=== PATIENT | male | born 1950 | race Caucasian/White ===

== ENCOUNTER 2017-02-04 05:59 | Day surgery (SDC) | payer BC ==
[2017-01-29 10:53] VITALS: BMI 33.0
[~2017-02-04 05:59] MED LIST: DEXAMETHASONE SOD PHOSPHATE 10 MG/ML 1 ML VIAL IV ONE; HEPARIN SODIUM,PORCINE 5,000 UNIT/ML 1 ML VIAL SQ ONE; LACTATED RINGERS 1,000 ML IV SCH; LIDOCAINE 1% 20 ML VIAL (10MG/ML) FOR IV START INTRADERMA PRN; MIDAZOLAM 2 MG/2 ML VIAL IV PRN; ONDANSETRON 4 MG/2 ML VIAL IVP ONE; SCOPOLAMINE 1.5MG/72HR PATCH TRANSDERM ONE; ceFAZolin 2 GM in SODIUM CHLORIDE 0.9% 100 ML IVPB ONE
[2017-02-04] MEDS ORDERED: NEOSTIGMINE 1 MG/ML 10 ML VIAL ONE (07:35)
[2017-02-04] MEDS ORDERED: ROCURONIUM BROMIDE 10 MG/ML 10 ML VIAL IV ONE (07:35)
[2017-02-04] MEDS ORDERED: GLYCOPYRROLATE 0.2 MG/ML 2 ML VIAL ONE (07:35)
[2017-02-04] MEDS ORDERED: PROPOFOL 10 MG/ML 20 ML VIAL IV ONE (07:35)
[2017-02-04] MEDS ORDERED: HYDROmorphone (PF) 1 MG/ML ONE (07:35)
[2017-02-04] MEDS ORDERED: fentaNYL (PF) 50 MCG/ML 2 ML AMP ONE (07:35)
[2017-02-04] MEDS ORDERED: MIDAZOLAM 2 MG/2 ML VIAL ONE (07:35)
[2017-02-04] MEDS ORDERED: SUCCINYLCHOLINE CHLORIDE 100 MG/5 ML SYR IV ONE (07:35)
[2017-02-04] MEDS ORDERED: KETOROLAC 30 MG/ML 1 ML VIAL ONE (07:35)
[2017-02-04] MEDS ORDERED: BUPIVACAIN-EPI 0.5%-1:200,000 30 ML VIAL SQ ONE (08:02)
[2017-02-04] MEDS ORDERED: LACTATED RINGERS 1,000 ML IV ONE (08:14)
--- NOTE | 2017-02-04 09:05 | P.OP ---
Date of Procedure: 02/04/17 Preoperative Diagnosis: Incarcerated umbillical hernia Hypertension Hypercholesterolemia Prostate enlargement Postoperative Diagnosis: Incarcerated umbillical hernia Hypertension Hypercholesterolemia Prostate enlargement Procedure(s) Performed: Robotic-assisted laparoscopic incarcerated umbilical hernia repair with mesh Implants: Ventralex ST patch Ref#[id number] 6.4 cm circular Anesthesia: MAG local Surgeon: Yaquelin Rocha Estimated Blood Loss (ml): 10 Pathology: none sent Condition: stable Disposition: PACU Indications for Procedure: 66 years old male presents for umbilical hernia repair. Informed consent obtained. Operative Findings: Incarcerated umbilical hernia containing omentum Description of Procedure: The patient was brought to the operating room and placed in supine position. General anesthesia with endotracheal intubation was performed as per anesthesia team. The right arm was tucked against the body and a footboard was applied. Chlorhexidine was used to prep the skin followed by application of sterile drapes and Ioban dressing. A timeout was performed to verify correct patient and correct procedure. Patient was confirmed to receive perioperative IV antibiotics , bilateral SCDs and 5000 units of subcutaneous heparin for VTE prophylaxis. A 5 mm skin incision was made along the left midaxillary line and a Veress needle was inserted to establish the pneumoperitoneum to a pressure of 15 mm of Hg. Using a 5 mm 30 laparoscope the peritoneal cavity was entered using the Optiview technique. Additional 12 mm trocar was placed in the mid axillary line in the left mid abdomen and robotic 8 mm trocar in the left lower abdomen. The 5 mm trocar was upsized to 8 mm robotic trocar. The da Donis robot was then docked. The 30 robotic camera was used. A robotic prograsp and monopolar scissors were inserted through 8 mm robotic trocars The hernia defect contained preperitoneal fat and omentum which were reduced using gentle traction and countertraction method. The falciform ligament was divided using monopolar scissors close to the anterior abdominal wall to create a landing zone for the mesh. A 6.[address] circular mesh was rolled and introduced to the abdominal cavity via the 12 mm trocar. The hernia defect was closed primarily with running sutures using O- V lock by taking 1 cm bite on the fascia on either side of the defect. A Fran Zainab device was inserted through the middle of the hernia defect and the stay suture on the mesh was grasped to elevate the mesh against the anterior abdominal wall. The mesh was circumferentially sutured to the peritoneum of the anterior abdominal wall using 2-0 V lock without any folds or kinks. The robot was then undocked. Laparoscopic 30 degrees camera was reinserted. All trocar sites were examined. No evidence of bleeding. The 12 mm trocar site was closed using two transfascial sutures of 0 Vicryl which were placed using a Instilling Values device. The pneumoperitoneum was evacuated and all the skin incisions were closed using 4-0 Monocryl followed by Dermabond skin glue. Telfa and Tegaderm dressings were applied. The sponge, instrument and needle count were correct x2. Abdominal binder was applied. The patient was extubated and taken to post anesthesia care unit in stable condition.
[2017-02-04] MEDS: HYDROmorphone 1 MG/ML 1 ML SYRINGE IVP PRN ×3 (09:25→09:50)
[2017-02-04 09:32] VITALS: TEMP 98
[2017-02-04 10:16] VITALS: RESP 16
[2017-02-04] MEDS ORDERED: HYDROcodone/APAP 5-325MG 1 EACH TAB PO ONE (10:54)
[2017-02-04 11:08] VITALS: BP 130/78; PULSE 73
== END 2017-02-04 11:27 | disposition home or self-care (01) ==
LOC: OR 05:59
PROVIDERS: ATTEND Surgery
DX: K42.0 Umbilical hernia with obstruction, without gangrene (principal); I10 Essential (primary) hypertension; E78.00 Pure hypercholesterolemia, unspecified; E78.5 Hyperlipidemia, unspecified; N40.0 Benign prostatic hyperplasia without lower urinary tract symptoms; Z79.899 Other long term (current) drug therapy
CPT/HCPCS: 49653; S2900

== ENCOUNTER 2019-05-11 08:42 | Inpatient (IN) | payer MEDICARE, OTHER ==
[2019-05-11] MEDS ORDERED: HEPARIN SODIUM,PORCINE 5,000 UNIT/ML 1 ML VIAL IV PRN (08:48)
--- NOTE | 2019-05-11 08:55 | ED ---
Chest Pain HPI - General Stated Complaint: chest pain Time Seen by Provider: 05/11/19 08:42 Source: patient, RN/MD, EMS, RN notes reviewed, old records reviewed - History of Present Illness Initial Comments: This a 68-year-old male who was transferred from [facility] to this facility for further evaluation of chest pain. He presented today 0 to that emergency facility with chest pain after workup was discharged with plans for outpatient stress test when he presented again this morning very early with recurrent pain that now is radiating to his back. It was about 6/10 severity after morphine went on for/10 he currently is pain-free. He did have a markedly elevated d-dimer CAT scan was performed no evidence of any pulmonary embolism additionally the CT was negative for any evidence of aortic aneurysm or dis section or other factors please see the complete report. His initial troponin was negative. The case had been discussed with Dr. Radford patient was transferred here. MD Complaint: chest pain - Related Data Home Medications Medication Instructions Recorded Confirmed Metoprolol Succinate [Toprol XL] 25 mg PO DAILY 01/29/17 05/11/19 Tamsulosin [Flomax] 0.4 mg PO DAILY 01/29/17 05/11/19 amLODIPine [Norvasc] 10 mg PO DAILY 01/29/17 05/11/19 Atorvastatin [Lipitor] 80 mg PO HS 05/11/19 05/11/19 Omeprazole 20 mg PO DAILY 05/11/19 05/11/19 traZODone HCL [Desyrel] 50 mg PO HS 05/11/19 05/11/19 Allergies Allergy/AdvReac Type Severity Reaction Status Date / Time lisinopril AdvReac Cough Verified 05/11/19 09:09 Review of Systems ROS Statement: Those systems with pertinent positive or pertinent negative responses have been documented in the HPI. ROS Other: All systems not noted in ROS Statement are negative. EKG Findings - EKG Results: EKG: interpreted by RISSA, sinus rhythm (Sinus bradycardia rate of 56. Interval 172 QRS duration 100 QT since QTC 43/414 this is compared with EKG sent from the other facility.) Past Medical History Past Medical History: Hyperlipidemia, Hypertension, Osteoarthritis (OA) History of Any Multi-Drug Resistant Organisms: None Reported Past Surgical History: Cholecystectomy, Hernia Repair, Joint Replacement, Orthopedic Surgery Additional Past Surgical History / Comment(s): R & L Knee replaced; R & L Should er scope Past Anesthesia/Blood Transfusion Reactions: No Reported Reaction Smoking Status: Never smoker - Past Family History Father Family Medical History: Cancer Mother Family Medical History: Cancer General Exam - General Exam Comments Initial Comments: This is a well-developed well-nourished awake alert oriented 3 male General appearance: alert, in no apparent distress Head exam: Present: atraumatic, normocephalic, normal inspection Eye exam: Present: normal appearance, PERRL, EOMI. Absent: scleral icterus, c onjunctival injection, periorbital swelling ENT exam: Present: normal exam, mucous membranes moist Neck exam: Present: normal inspection. Absent: tenderness, meningismus, lymphadenopathy Respiratory exam: Present: normal lung sounds bilaterally. Absent: respiratory distress, wheezes, rales, rhonchi, stridor Cardiovascular Exam: Present: regular rate, normal rhythm, normal heart sounds. Absent: systolic murmur, diastolic murmur, rubs, gallop, clicks GI/Abdominal exam: Present: soft, normal bowel sounds. Absent: distended, tenderness, guarding, rebound, rigid Extremities exam: Present: normal inspection, full ROM, normal capillary refill. Absent: tenderness, pedal edema, joint swelling, calf tenderness Back exam: Present: normal inspection Neurological exam: Present: alert, oriented X3, CN II-XII intact Psychiatric exam: Present: normal affect, normal mood Skin exam: Present: warm, dry, intact, normal color. Absent: rash Course Vital Signs 05/11/19 08:55 Temperature 98.2 F Pulse Rate 52 L Respiratory 18 Rate Blood Pressure 127/72 O2 Sat by Pulse 97 Oximetry - Reevaluation(s) Reevaluation #1: 05/11/19 08:55 I did review the materials from the other hospital. The radiology Department is unable to download the imaging from the disc that was sent with the patient. The written reports are present. 05/11/19 09:17 Chest Pain MDM - MDM Patient did present with complaints of chest pain to [facility] was transferred here for evaluation he is currently pain-free EKG is unremarkable at this time compared to the one done at that time. Patient will be admitted Dr. Young will be admitting physician and Dr. Loaiza will be consulted Disposition Clinical Impression: Unstable angina pectoris, Acute coronary syndrome Disposition: ADMITTED IP TO THIS HOSP Condition: Stable Referrals: Juan Antonio Taylor MD [Primary Care Provider] - 1-2 days
[2019-05-11] MEDS: HEPARIN SOD,PORK IN 0.45% NACL 25,000 UNIT in 0.45% NACL 1 250ML.BAG IV SCH (09:38)
--- NOTE | 2019-05-11 11:00 | P.HPIM ---
History of Present Illness H&P Date: 05/11/19 The patient is a 68 yo M with a PMH of HTN, HLD, and fatty liver disease was transferred to [facility] for chest pain. The patient notes that he has been having epigastric and substernal pressure-like chest discomfort for the previous one month, constant, with no alleviating or exacerbating features. The patient notes however that on Wednesday 05/09, blood pressure worsened and he developed a 4 out of 10 pain in the same region, non-radiating, which was also constant and nonexertional. He also had an episode of dizziness while he was working in the yard, which prompted him to go to [place] emergency room. The patient was evaluated and was discussed with (bankruptcy processor), who had advised that the patient may be discharged with an outpatient stress test. The patient notes however that last night, the pain, characterized as a pressure worsened to a 6 out of 10, again in the same region, but now radiating straight to the back. The patient again denied any alleviating or exacerbating features, with pain being nonexertional, nonpleuritic, with some associated nausea and dry heaving. The patient denied associated symptoms including shortness of breath, palpitations, diaphoresis, or dizziness. He presented back at [facility] where his d-dimer was 961, after which he underwent a CT chest abdomen pelvis which revealed no PEs or dissection. The patient's EKG revealed no ST/T- wave changes with sinus rhythm. Repeat EKG in [facility] emergency room revealed a sinus bradycardia at 56 bpm, with no ST/T-wave changes noted. The patient's troponin was unremarkable. The patient was however transferred to [facility] for further evaluation by cardiology. At time of interview, the patient notes that his pain is a 4 out of 10. The patient's laboratory evaluation from [place] was reviewed, with WBC count 4.6, hemoglobin 14, platelets 149, sodium 142, potassium 3.9, chloride 111, CO2 24, BUN 18, creatinine 0.9, glucose 101, AST 24, ALT 22, alk phos 56, albumin 3.8, and lipase 49. The patient is being admitted to the medicine service under observation for evaluation by cardiology. Review of Systems Pertinent positives and negatives as discussed in HPI, a complete review of systems was performed and all other systems are negative. Past Medical History Past Medical History: Hearing Disorder / Deafness, Hyperlipidemia, Hypertension, Osteoarthritis (OA), Prostate Disorder Additional Past Medical History / Comment(s): Past recurrent pancreatitis, possible autoimmune hepatitis-pt states 3 physicians said he did and 3 said he did not have it, slight heart valve leak, occasional back pain, arthritis in multiple joints. History of Any Multi-Drug Resistant Organisms: None Reported Past Surgical History: Cholecystectomy, Hernia Repair, Joint Replacement, Orthopedic Surgery Additional Past Surgical History / Comment(s): R & L Knee replaced; R & L shoulder arthroscopic surgeries, umbilical hernia repair with mesh, incisional hernia repair, EGD, ERCP, colonoscopy-normal. Past Anesthesia/Blood Transfusion Reactions: No Reported Reaction Past Psychological History: No Psychological Hx Reported Additional Psychological History / Comment(s): Pt resides with his spouse. They have one dog. He is independent. Smoking Status: Never smoker Past Alcohol Use History: Occasional Past Drug Use History: None Reported - Past Family History Father Family Medical History: Cancer Additional Family Medical History / Comment(s): Father of lung cancer. He was a smoker. Mother Family Medical History: Cancer Additional Family Medical History / Comment(s): Mother of lung cancer. She was a smoker. Medications and Allergies Home Medications Medication Instructions Recorded Confirmed Type Metoprolol Succinate [Toprol XL] 25 mg PO DAILY 01/29/17 05/11/19 History Tamsulosin [Flomax] 0.4 mg PO DAILY 01/29/17 05/11/19 History amLODIPine [Norvasc] 10 mg PO DAILY 01/29/17 05/11/19 History Atorvastatin [Lipitor] 80 mg PO HS 05/11/19 05/11/19 History Omeprazole 20 mg PO DAILY 05/11/19 05/11/19 History traZODone HCL [Desyrel] 50 mg PO HS 05/11/19 05/11/19 History Allergies Allergy/AdvReac Type Severity Reaction Status Date / Time lisinopril AdvReac Cough Verified 05/11/19 09:09 Physical Exam Vitals: Vital Signs Temp Pulse Resp BP Pulse Ox 05/11/19 10:30 61 19 118/82 99 05/11/19 10:00 56 L 15 138/81 97 05/11/19 08:55 98.2 F 52 L 18 127/72 97 Intake and Output 05/10/19 05/11/19 05/11/19 22:59 06:59 14:59 Other: Weight 104.326 kg General: non toxic, no distress, appears at stated age, obese Derm: no unusual rashes/lesions no unusual ecchymoses, warm, dry Head: atraumatic, normocephalic, symmetric Eyes: EOMI, no lid lag, anicteric sclera, pupils equal round reactive to light ENT: Nose and ears atraumatic, no thrush, no pharyngeal erythema Neck: No thyromegaly, no cervical lymphadenopathy, trachea midline, supple Mouth: no lip lesion, mucus membranes moist Cardiovascular: S1S2 reg, no murmur, positive posterior tibial pulse bilateral, no edema, capillary refill less than 2 seconds, no chest wall tenderness Lungs: CTA bilateral, no rhonchi, no rales , no accessory muscle use Abdominal: Obese, soft, nontender to palpation, no guarding, no appreciable organomegaly, normal bowel sounds Ext: no gross muscle atrophy, muscle strength 5 out of 5 in all 4 extremities grossly, no contractures, Neuro: CN II-XI grossly intact, light touch intact all 4 extremities, finger to nose within normal limits, Psych: Alert, oriented, appropriate affect Thrombosis Risk Factor Assmnt - Choose All That Apply Any of the Below Risk Factors Present?: Yes Each Factor Represents 1 point: Obesity (BMI >25) Other Risk Factors: Yes Each Risk Factor Represents 2 Points: Age 61-74 years Other congenital or acquired thrombophilia - If yes, enter type in comment: No Thrombosis Risk Factor Assessment Total Risk Factor Score: 3 Thrombosis Risk Factor Assessment Level: Moderate Risk Assessment and Plan Plan: Chest pain, rule out ACS -Troponin trend -Cardiology evaluation -Cardiac monitoring -Aspirin, Plavix, statin -Echocardiogram Chronic conditions: Hypertension, hyperlipidemia -Continue with home meds DVT prophylaxis -Heparin The patient is admitted with an anticipated less than 2 midnight stay for evaluation of chest pain. CODE STATUS:Full Code Discussed with: Patient, , Son Anticipated discharge date: 05/12/[address]: Home A total of 40 minutes was spent on the care of this complex patient more than 50% of the time was spent in counseling and care coordination.
[2019-05-11] MEDS: ACETAMINOPHEN TAB 325 MG TAB PO PRN ×3 (12:22→22:59)
[2019-05-11] MEDS: PANTOPRAZOLE 40 MG TABLET PO SCH (17:25)
[2019-05-11] MEDS: NITROGLYCERIN SL TABS 0.4 MG TAB SUBLINGUAL PRN ×3 (18:25→18:35)
[2019-05-11] MEDS: NITROGLYCERIN OINT 1 INCH/GM PACKET TOPICAL SCH (19:35)
[2019-05-11] MEDS: traZODone HCL 50 MG TAB PO SCH (21:20)
[2019-05-11] MEDS: ATORVASTATIN 80 MG TAB PO SCH (21:20)
[2019-05-12] MEDS: MORPHINE SULFATE 2 MG/ML SYRINGE IVP PRN ×5 (01:07→19:25)
[2019-05-12] MEDS: NITROGLYCERIN OINT 1 INCH/GM PACKET TOPICAL SCH ×4 (03:50→23:22)
[2019-05-12 06:06] LABS: Basophils % (A) 0 %; Eosinophils # (A) 0.1 k/uL (0-0.7); Eosinophils % (A) 2 %; HCT 36.5 % (39.0-53.0); HGB 12.6 gm/dL (13.0-17.5); Lymphocytes % (A) 21 %; MCH 30.4 pg (25.0-35.0); MCHC 34.5 g/dL (31.0-37.0); MCV 88.1 fL (80.0-100.0); Mean Platelet Volume 5.9; Monocytes # (A) 0.4 k/uL (0-1.0); Monocytes % (A) 8 %; Neutrophils # (A) 3.2 k/uL (1.3-7.7); Neutrophils % (A) 66 %; Platelet Count 126 k/uL (150-450); RBC 4.14 m/uL (4.30-5.90); RDW 12.9 % (11.5-15.5); WBC 4.9 k/uL (3.8-10.6)
[2019-05-12 06:21] LABS: Cholesterol 116 mg/dL (<200); HDL Cholesterol 30 mg/dL (40-60); LDL Cholesterol,Calculated 73 mg/dL (0-99); Triglycerides 65 mg/dL (<150)
[2019-05-12] MEDS ORDERED: PANTOPRAZOLE 40 MG TABLET PO SCH (07:30)
[2019-05-12] MEDS: HEPARIN SOD,PORK IN 0.45% NACL 25,000 UNIT in 0.45% NACL 1 250ML.BAG IV SCH (07:44)
[2019-05-12] MEDS: ACETAMINOPHEN TAB 325 MG TAB PO PRN (08:00)
[2019-05-12] MEDS ORDERED: ASPIRIN 325 MG TAB PO SCH (09:00)
[2019-05-12] MEDS: ASPIRIN 81 MG PO SCH (10:30)
[2019-05-12] MEDS: TAMSULOSIN 0.4 MG CAP.ER.24H PO SCH (10:30)
[2019-05-12] MEDS: PANTOPRAZOLE 40 MG TABLET PO SCH ×2 (10:30→16:11)
[2019-05-12] MEDS: METOPROLOL SUCCINATE (ER) 25 MG TAB.ER.24H PO SCH (11:05)
[2019-05-12] MEDS: amLODIPine 10 MG TAB PO SCH (11:05)
--- NOTE | 2019-05-12 13:21 | P.CRDCN ---
History of Present Illness History of present illness: This is a pleasant 68-year-old male past medical history significant for hypertension, dyslipidemia and valvular heart disease specifically mild aortic insufficiency. He follows in the office with Dr. Cary. We have been asked him in consultation secondary to chest discomfort. He states for the previous month constantly has had a pressure-type sensation across to chest. He states it feels like someone is pressing on his chest. This has been going on with no specific aggravating or alleviating factor. The pain does not increase with activity or improved with rest it has been quite constant. Starting on Saturday he started having a sharp pain in the midsternal region that radiated through to his back. At times the pain would come and be exacerbated by deep inspiration. At that time he was working on his garage and bending over to pick something up and also felt dizzy. He did not pass out. He was evaluated at [facility] emergency department on Saturday and sent home in stable condition. Per the patient he had an EKG and blood work that were unremarkable. He then came back to the emergency department late last night with a similar type symptoms. Per the patient again his cardiac enzymes are normal and EKG however his d-dimer was elevated and he underwent a CTA of the chest. CTA report reviewed and is negative for pulmonary embolism, aortic dissection or aortic aneurysm. He was sent here for further evaluation. He is seen and examined sitting in bed in no acute distress. He continues to feel a heavy pressure on his chest however the sharp chest pain has subsided. His sharp intermittent chest discomfort is associated with nausea but no vomiting. EKG obtained at [facility] and repeated here at [facility] reveals sinus mechanism with no acute ST or T-wave abnormalities. Laboratory data reviewed, WBC 4.9, hemoglobin 12.6, platelets 126, LDL 73, cardiac enzymes negative 3, creatinine 0.9, potassium 4.1. Current daily cardiac medications include atorvastatin 80 mg daily, Toprol 25 mg daily and amlodipine 10 mg daily. Most recent echocardiogram obtained in the office December 2018 reveals preserved LV systolic function with ejection fraction 55-60%, aortic sclerosis with no stenosis, mild aortic insufficiency and mild mitral regurgitation. At the time of my exam: CONSTITUTIONAL: Denies fever. Denies chills. EYES: Denies blurred vision. Denies vision changes. Denies eye pain. EARS, NOSE, MOUTH & THROAT: Denies headache. Denies sore throat. Denies ear pain. CARDIOVASCULAR: Complains of intermittent chest pain at rest. Denies shortness of breath. Denies orthopnea. Denies PND. Denies palpitations. RESPIRATORY: Denies cough. GASTROINTESTINAL: Denies abdominal pain. Denies diarrhea. Denies constipation. Denies nausea. Denies vomiting. MUSCULOSKELETAL: Denies myalgias. INTEGUMENTARY: Denies pruitis. Denies rash. NEUROLOGIC: Denies numbness. Denies tingling. Denies weakness. PSYCHIATRIC: Denies anxiety. Denies depression. ENDOCRINE: Denies fatigue. Denies weight change. Denies polydipsia. Denies polyurina. GENITOURINARY: Denies burning, hematuria or urgency with micturation. HEMATOLOGIC: Denies history of anemia. Denies bleeding. Blood pressure 147/75 heart rate 72 afebrile and maintaining oxygen saturation on nasal cannula GENERAL: This is a 68-year-old male in no apparent distress at the time of my examination. HEENT: Head is atraumatic, normocephalic. Pupils are equal, round. Sclerae anicteric. Conjunctivae are clear. Mucous membranes of the mouth are moist. Neck is supple. There is no jugular venous distention. No carotid bruit is heard. LUNGS: Clear to auscultation no wheezes, rales or rhonchi. No chest wall tenderness is noted on palpation or with deep breathing. HEART: Regular rate and rhythm with faint systolic ejection murmur at the base, no rubs or gallops. S1 and S2 heard. ABDOMEN: Soft, nontender. Bowel sounds are heard. No organomegaly noted. EXTREMITIES: No evidence of peripheral edema and no calf tenderness noted. VASCULAR: Radial and dorsalis pedis pulses palpated, no evidence of clubbing. NEUROLOGIC: Patient is awake, alert and oriented x3. ASSESSMENT Chest pain, atypical for angina with pleuritic features however there are some attributes possibly related to angina. Pulmonary embolism or aortic dissection have been ruled out. Hypertension Dyslipidemia Aortic insufficiency, mild PLAN Obtain 2D echocardiogram and doppler study to assess cardiac structure and function. Recommend proceeding with coronary angiography to assess for underlying coronary artery disease. I have discussed the risks, benefits and alternative therapies for the above-mentioned procedure and for both sedation/analgesia as well as necessary blood product administration, if indicated, as they pertain to this patient. The patient has indicated understanding and acceptance of the risks and procedures discussed. The case has been boarded for tomorrow morning with Dr. Cary. Further recommendations to follow. Thank you kindly for this consultation. Nurse Practitioner note has been reviewed, I agree with a documented findings and plan of care. Patient was seen and examined. Past Medical History Past Medical History: Hearing Disorder / Deafness, Hyperlipidemia, Hypertension, Osteoarthritis (OA), Prostate Disorder Additional Past Medical History / Comment(s): Past recurrent pancreatitis, possible autoimmune hepatitis-pt states 3 physicians said he did and 3 said he did not have it, slight heart valve leak, occasional back pain, arthritis in multiple joints. History of Any Multi-Drug Resistant Organisms: None Reported Past Surgical History: Cholecystectomy, Hernia Repair, Joint Replacement, Orthopedic Surgery Additional Past Surgical History / Comment(s): R & L Knee replaced; R & L shoulder arthroscopic surgeries, umbilical hernia repair with mesh, incisional hernia repair, EGD, ERCP, colonoscopy-normal. Past Anesthesia/Blood Transfusion Reactions: No Reported Reaction Past Psychological History: No Psychological Hx Reported Additional Psychological History / Comment(s): Pt resides with his spouse. They have one dog. He is independent. Smoking Status: Never smoker Past Alcohol Use History: Occasional Past Drug Use History: None Reported - Past Family History Father Family Medical History: Cancer Additional Family Medical History / Comment(s): Father of lung cancer. He was a smoker. Mother Family Medical History: Cancer Additional Family Medical History / Comment(s): Mother of lung cancer. She was a smoker. Medications and Allergies Home Medications Medication Instructions Recorded Confirmed Type Metoprolol Succinate [Toprol XL] 25 mg PO DAILY 01/29/17 05/11/19 History Tamsulosin [Flomax] 0.4 mg PO DAILY 01/29/17 05/11/19 History amLODIPine [Norvasc] 10 mg PO DAILY 01/29/17 05/11/19 History Atorvastatin [Lipitor] 80 mg PO HS 05/11/19 05/11/19 History Omeprazole 20 mg PO DAILY 05/11/19 05/11/19 History traZODone HCL [Desyrel] 50 mg PO HS 05/11/19 05/11/19 History Allergies Allergy/AdvReac Type Severity Reaction Status Date / Time lisinopril AdvReac Cough Verified 05/11/19 09:09 Physical Exam Vitals: Vital Signs Temp Pulse Pulse Pulse Resp BP BP 05/11/19 13:02 97.4 F L 100 18 129/76 05/11/19 11:36 05/11/19 11:27 97.3 F L 56 L 56 L 18 124/71 05/11/19 10:30 61 19 118/82 05/11/19 10:00 56 L 15 138/81 05/11/19 08:55 98.2 F 52 L 18 127/72 Pulse Ox 05/11/19 13:02 100 05/11/19 11:36 97 05/11/19 11:27 97 05/11/19 10:30 99 05/11/19 10:00 97 05/11/19 08:55 97 Intake and Output 05/10/19 05/11/19 05/11/19 22:59 06:59 14:59 Intake Total 525 Balance 525 Intake: IV 525 .9 @ 75 525 Other: Voiding Method Toilet Weight 104.326 kg Results 05/12/19 05:23 Cardiac Enzymes 05/11/19 Range/Units 09:15 Troponin I <0.012 (0.000-0.034) ng/mL Coagulation 05/11/19 Range/Units 12:16 APTT 57.0 H (22.0-30.0) sec Current Medications Generic Name Dose Route Start Last Admin Trade Name Freq PRN Reason Stop Dose Admin Acetaminophen 650 mg 05/11/19 12:19 05/11/19 12:22 Tylenol Tab PO 650 mg Q4HR PRN Administration Fever and/ or Mild Pain Amlodipine Besylate 10 mg 05/12/19 09:00 Norvasc PO DAILY [facility] Aspirin 81 mg 05/12/19 09:00 Aspirin PO DAILY [facility] Atorvastatin Calcium 80 mg 05/11/19 21:00 Lipitor PO HS [facility] Heparin Sodium (Porcine) 0 unit 05/11/19 08:48 Heparin IV PER PROTOCOL PRN Low PTT Protocol Heparin Sodium/Sodium Chloride 250 mls @ 10.036 mls/hr 05/11/19 09:00 09:38 25,000 unit/ Sodium Chloride IV 9.62 units/kg/hr .Q24H DARÍO 10.036 mls/hr Administration Protocol 9.62 UNITS/KG/HR Metoprolol Succinate 25 mg 05/12/19 09:00 Toprol Xl PO DAILY [facility] Nitroglycerin 0.4 mg 05/11/19 09:52 Nitrostat SUBLINGUAL Q5M PRN Chest Pain Pantoprazole Sodium 40 mg 05/11/19 17:30 Protonix PO AC-BID DARÍO Tamsulosin HCl 0.4 mg 05/12/19 09:00 Flomax PO DAILY [facility] Trazodone HCl 50 mg 05/11/19 21:00 Desyrel PO [facility] Intake and Output 05/10/19 05/11/19 05/11/19 22:59 06:59 14:59 Intake Total 525 Balance 525 Intake: IV 525 .9 @ 75 525 Other: Voiding Method Toilet Weight 104.326 kg Patient Weight 05/12/19 06:59 Weight 104.326 kg
--- NOTE | 2019-05-12 13:32 | P.PN ---
Subjective Progress Note Date: 05/12/19 Patient is 68-year-old male with a PMH of hypertension, lipidemia, and fatty liver disease who had presented to [place] initially for chest pain and was subsequently transferred to [facility]. The patient had undergone an extensive evaluation in the emergency room at [facility] which was reviewed with EKG showing normal sinus rhythm with no ST-T wave changes. A CT C/A/P revealed no PEs or dissections w/ laboratory evaluation showing troponin less than 0.01, WBC count 4.6, hemoglobin 14, platelets 149, sodium 142, potassium 3.9, chloride 111, CO2 24, BUN 18, creatinine 0.9, glucose 101, AST 24, ALT 22, alk phos 56, albumin 3.8, and lipase 49. The patient was admitted under observation. He was evaluated the patient earlier today and recommended cardiac catheterization, which is as of tomorrow. The patient was seen at the bedside in the observation unit. He noted mild continued substernal chest discomfort, 3 out of 10, with no associated symptoms. He denied breath, palpitations, nausea, vomiting, fever, chills. The patient's troponins were negative 3, and he continues to be on the heparin infusion. Objective - Vital Signs Vital signs: Vital Signs Temp 97.6 F 05/12/19 11:37 Pulse 72 05/12/19 11:37 Resp 18 05/12/19 11:37 BP 147/75 05/12/19 11:37 Pulse Ox 98 05/12/19 11:37 Intake & Output 05/11/19 05/12/19 05/12/19 18:59 06:59 18:59 Intake Total 525 581.796 Output Total 650 Balance 525 -68.204 Weight 104.326 kg Intake: IV 525 .9 @ 75 525 Intake, IV Titration 221.796 Amount Heparin Sod,Pork in 0.45% 221.796 NaCl 25,000 unit In 0.45 % NaCl 1 250ml.bag @ 9.62 UNITS/KG/HR 10.036 mls/ hr IV .Q24H [facility] Rx#: [id number] Oral 360 Output: Urine 650 Other: Voiding Method Toilet Toilet Toilet # Voids 1 - Exam General: Non-toxic, in no acute distress, appears stated age, obese HEENT: NC/AT, anicteric sclerae, moist conjunctiva, no lid-lag, PERRLA Cardiovascular: S1/S2 wnl, no murmurs, rubs, or gallops Lungs: Clear to auscultation, normal respiratory effort, no accessory muscle use, no chest tenderness Abdominal: Soft, non-tender, non-distended, no guarding, rebound, or rigidity Skin: Warm, dry Extremities: No edema or contractures Psychiatric: Alert and oriented to person, place and time, appropriate affect Neuro: CN II-XII grossly intact, Strength 5/5 in all 4 extremities, Speech intact, Sensation to light touch grossly intact throughout - Labs CBC & Chem 7: 05/12/19 05:23 Labs: Abnormal Lab Results - Last 24 Hours (Table) 05/12/19 05/12/19 05/12/19 Range/Units 05:23 05:23 05:23 RBC 4.14 L (4.30-5.90) m/uL Hgb 12.6 L (13.0-17.5) gm/dL Hct 36.5 L (39.0-53.0) % Plt Count 126 L (150-450) k/uL APTT 57.9 H (22.0-30.0) sec HDL Cholesterol 30 L (40-60) mg/dL Assessment and Plan Plan: Unstable angina -Troponin negative 3 -Cardiology recommendations appreciated -Scheduled for cardiac catheterization in the a.m. -Cardiac monitoring -Aspirin, Plavix, statin Chronic conditions: Hypertension, hyperlipidemia -Continue with home meds DVT prophylaxis -Heparin Discussed with: patient Anticipated discharge date: 1-[address]: home A total of 30 minutes was spent on the care of this complex patient more than 50% of the time was spent in counseling and care coordination.
--- NOTE | 2019-05-12 13:37 | ECHOF ---
Referral Reason:chest pain MEASUREMENTS -------- HEIGHT: 177.8 cm WEIGHT: 104.3 kg BP: 118/82 RVIDd: 4.7 cm (< 3.3) IVSd: 1.5 cm (0.6 - 1.1) LVIDd: 4.4 cm (3.9 - 5.3) LVPWd: 1.7 cm (0.6 - 1.1) IVSs: 2.2 cm LVIDs: 2.9 cm LVPWs: 2.1 cm LAESV Index (A-L): 30.73 ml/m Ao Diam: 3.3 cm (2.0 - 3.7) AV Cusp: 1.7 cm (1.5 - 2.6) LA Diam: 4.3 cm (2.7 - 3.8) EPSS: 0.3 cm AR PHT: 738 ms RAP: 5.00 mmHg RVSP: 35.81 mmHg MV EF SLOPE: 68.10 mm/s (70 - 150) MV EXCURSION: 1.87 cm (> 18.000) FINDINGS -------- Sinus rhythm. The left ventricular size is normal. There is mild concentric left ventricular hypertrophy. Overa ll left ventricular systolic function is normal with, an EF between 60 - 65 %. The diastolic fillin g pattern is normal for the age of the patient. The right ventricle is severely enlarged. Left atrium is mildly dilated by volume. The right atrium was not well visualized. Interatrial and interventricular septum intact. There is moderate aortic valve sclerosis without stenosis. There is mild aortic regurgitation. Mild mitral annular calcification present. Mild mitral regurgitation is present. Mild tricuspid regurgitation present. There is mild pulmonary hypertension. The right ventricular systolic pressure, as measured by Doppler, is 35.81mmHg. Trace/mild (physiologic) pulmonic regurgitation. The aortic root size is normal. The inferior vena cava was not well visualized. There is no pericardial effusion. CONCLUSIONS -------- 1. Sinus rhythm. 2. The left ventricular size is normal. 3. There is mild concentric left ventricular hypertrophy. 4. Overall left ventricular systolic function is normal with, an EF between 60 - 65 %. 5. The diastolic filling pattern is normal for the age of the patient. 6. The right ventricle is severely enlarged. 7. Left atrium is mildly dilated by volume. 8. The right atrium was not well visualized. 9. Interatrial and interventricular septum intact. 10. There is moderate aortic valve sclerosis without stenosis. 11. There is mild aortic regurgitation. 12. Mild mitral annular calcification present. 13. Mild mitral regurgitation is present. 14. Mild tricuspid regurgitation present. 15. There is mild pulmonary hypertension. 16. The right ventricular systolic pressure, as measured by Doppler, is 35.81mmHg. 17. Trace/mild (physiologic) pulmonic regurgitation. 18. The aortic root size is normal. 19. The inferior vena cava was not well visualized. 20. There is no pericardial effusion. PUBLIC RELATIONS ACCOUNT EXECUTIVE: Lluvia Green RDCS
[2019-05-12] MEDS ORDERED: SODIUM CHLORIDE 0.9% 1,000 ML in EMPTY BAG 1 BAG IV ONE (14:15)
[2019-05-12] MEDS ORDERED: ALPRAZolam 0.25 MG TAB PO PRN (14:15)
[2019-05-12] MEDS ORDERED: ALPRAZolam 0.5 MG TAB PO PRN (14:15)
[2019-05-12 16:46] LABS: Glucose,Whole Blood 113 mg/dL (75-99)
[2019-05-12] MEDS: ATORVASTATIN 80 MG TAB PO SCH (19:24)
[2019-05-12] MEDS: traZODone HCL 50 MG TAB PO SCH (19:24)
--- NOTE | 2019-05-13 00:02 | US ---
EXAMINATION TYPE: US abdomen complete DATE OF EXAM: 05/12/2019 COMPARISON: NONE CLINICAL HISTORY: pain after eating. Pain after eating per order. Pain x 6 days. HTN. Hyperlipidemia. Hx hernia. Cholecystectomy. EXAM MEASUREMENTS: Liver Length: 16.79 cm Gallbladder Wall: surgically removed CBD: not seen with certainty Spleen: 14.95 cm Right Kidney: 12.4 x 6.6 x 6.9 cm Left Kidney: 12.8 x 6.0 x 7.8 cm Very limited study due to bowel gas and patient body habitus. Pancreas: not well seen Liver: limited evaluation due to overlying bowel gas. Gallbladder: surgically removed Evidence for sonographic Cortés's sign: no CBD: not seen with certainty Spleen: appears enlarged. Right Kidney: No hydronephrosis or masses seen. Possible double collecting system. ?Cortical thinnin g. Left Kidney: No hydronephrosis or masses seen. ?Cortical thinning. Upper IVC: limited evaluation Abd Aorta: Prox aorta measures 2.74 cm in sagittal plane and 2.89 cm in transverse plane.?Ectatic. M id and distal aorta obscured by overlying bowel gas. IMPRESSION: There is splenomegaly. Spleen measures 15 cm. No evidence of dilated ducts. No ascites. N o renal mass or obstruction.
[2019-05-13] MEDS: MORPHINE SULFATE 2 MG/ML SYRINGE IVP PRN (00:44)
[2019-05-13] MEDS: NITROGLYCERIN OINT 1 INCH/GM PACKET TOPICAL SCH ×2 (06:08→17:43)
[2019-05-13] MEDS: ASPIRIN 81 MG PO SCH (06:12)
[2019-05-13] MEDS: METOPROLOL SUCCINATE (ER) 25 MG TAB.ER.24H PO SCH (06:12)
[2019-05-13] MEDS: amLODIPine 10 MG TAB PO SCH (06:13)
[2019-05-13] MEDS: PANTOPRAZOLE 40 MG TABLET PO SCH ×2 (06:13→17:43)
[2019-05-13] MEDS: TAMSULOSIN 0.4 MG CAP.ER.24H PO SCH (06:13)
[2019-05-13 06:33] LABS: Basophils % (A) 0 %; Eosinophils # (A) 0.1 k/uL (0-0.7); Eosinophils % (A) 2 %; HCT 39.1 % (39.0-53.0); HGB 12.9 gm/dL (13.0-17.5); Lymphocytes # (A) 1.1 k/uL (1.0-4.8); Lymphocytes % (A) 20 %; MCH 30.2 pg (25.0-35.0); MCHC 32.9 g/dL (31.0-37.0); MCV 91.9 fL (80.0-100.0); Mean Platelet Volume 6.7; Monocytes # (A) 0.4 k/uL (0-1.0); Monocytes % (A) 7 %; Neutrophils # (A) 3.9 k/uL (1.3-7.7); Neutrophils % (A) 70 %; Platelet Count 131 k/uL (150-450); RBC 4.26 m/uL (4.30-5.90); RDW 13.1 % (11.5-15.5); WBC 5.6 k/uL (3.8-10.6)
[2019-05-13] MEDS ORDERED: ATROPINE SULFATE 0.1 MG/ML 10ML SYRINGE IV PRN (14:52)
[2019-05-13] MEDS ORDERED: NITROGLYCERIN SL TABS 0.4 MG TAB SUBLINGUAL PRN (14:52)
[2019-05-13] MEDS ORDERED: RX INFO: IV CONTRAST WAS GIVEN 1 EACH MISC MISCELLANE PRN (14:52)
[2019-05-13] MEDS ORDERED: MAG HYDROX/AL HYDROX/SIMETH 30 ML CUP PO PRN (14:52)
[2019-05-13] MEDS ORDERED: ZOLPIDEM 5 MG TAB PO PRN (14:52)
--- NOTE | 2019-05-13 14:54 | P.PN ---
Subjective Progress Note Date: 05/13/19 Patient is 68-year-old male with a PMH of hypertension, lipidemia, and fatty liver disease who had presented to [place] initially for chest pain and was subsequently transferred to [facility]. The patient had undergone an extensive evaluation in the emergency room at [facility] which was reviewed with EKG showing normal sinus rhythm with no ST-T wave changes. A CT C/A/P revealed no PEs or dissections w/ laboratory evaluation showing troponin less than 0.01, WBC count 4.6, hemoglobin 14, platelets 149, sodium 142, potassium 3.9, chloride 111, CO2 24, BUN 18, creatinine 0.9, glucose 101, AST 24, ALT 22, alk phos 56, albumin 3.8, and lipase 49. The patient was admitted under observation. He was evaluated by cardiology who recommended a cardiac catheterization which is scheduled for today. The patient was seen at the bedside in the observation unit on 05/13. He noted continued substernal chest discomfort, 4 out of 10, with no associated symptoms. He denied shortness of breath, nausea, vomiting, diaphoresis, fever, or chills. Objective - Vital Signs Vital signs: Vital Signs Temp 98.5 F 05/13/19 12:00 Pulse 74 05/13/19 12:00 Resp 17 05/13/19 12:00 BP 124/75 05/13/19 12:00 Pulse Ox 96 05/13/19 12:00 Intake & Output 05/12/19 05/13/19 05/13/19 18:59 06:59 18:59 Intake Total 581.796 800 Output Total 650 Balance -68.204 800 Intake: Intake, IV Titration 221.796 800 Amount Heparin Sod,Pork in 0.45% 221.796 NaCl 25,000 unit In 0.45 % NaCl 1 250ml.bag @ 9.62 UNITS/KG/HR 10.036 mls/ hr IV .Q24H [facility] Rx#: [id number] Sodium Chloride 0.9% 1, 800 000 ml In Empty Bag 1 bag @ 1 ML/KG/HR 104.326 mls /hr IV .Q9H36M [facility] Rx#: [id number] Oral 360 Output: Urine 650 Other: Voiding Method Toilet Toilet Toilet # Voids 1 - Exam General: Non-toxic, in no acute distress, appears stated age, obese HEENT: NC/AT, anicteric sclerae, moist conjunctiva, no lid-lag, PERRLA Cardiovascular: S1/S2 wnl, no murmurs, rubs, or gallops Lungs: Clear to auscultation, normal respiratory effort, no accessory muscle use, no chest tenderness Abdominal: Soft, non-tender, non-distended, no guarding, rebound, or rigidity Skin: Warm, dry Extremities: No edema or contractures Psychiatric: Alert and oriented to person, place and time, appropriate affect Neuro: CN II-XII grossly intact, Strength 5/5 in all 4 extremities, Speech intact, Sensation to light touch grossly intact throughout - Labs CBC & Chem 7: 05/13/19 06:06 Labs: Abnormal Lab Results - Last 24 Hours (Table) 05/12/19 05/13/19 05/13/19 Range/Units 16:44 06:06 06:06 RBC 4.26 L (4.30-5.90) m/uL Hgb 12.9 L (13.0-17.5) gm/dL Plt Count 131 L (150-450) k/uL APTT 57.1 H (22.0-30.0) sec POC Glucose (mg/dL) 113 H (75-99) mg/dL Assessment and Plan Plan: Unstable angina -Troponin negative 3 -Cardiology recommendations appreciated -Scheduled for cardiac catheterization later today -Cardiac monitoring -Aspirin, statin -Heparin infusion Chronic conditions: Hypertension, hyperlipidemia -Continue with home meds DVT prophylaxis -Heparin Discussed with: patient Anticipated discharge date: 1-[address]: home A total of 30 minutes was spent on the care of this complex patient more than 50% of the time was spent in counseling and care coordination.
[2019-05-13] MEDS ORDERED: SODIUM CHLORIDE 0.9% 1,000 ML IV SCH (15:00)
[2019-05-13] MEDS ORDERED: IV FLUID CONTINUATION 1,000 ML IV ONE (16:05)
[2019-05-13] MEDS ORDERED: VERAPAMIL 2.5 MG/ML 2 ML AMP ONE (16:13)
[2019-05-13] MEDS ORDERED: HEPARIN SODIUM 1,000 UN/ML (10ML VL) ONE (16:13)
[2019-05-13] MEDS ORDERED: LIDOCAINE 1% INJ 10MG/ML (20 ML MDV) ONE (16:13)
[2019-05-13] MEDS ORDERED: MIDAZOLAM PF (FBP) 2 MG/2 ML VIAL IV ONE (16:24)
[2019-05-13] MEDS: VERAPAMIL SYRINGE (5 MG/10 ML) INTRAARTER ONE ×2 (16:25→17:02)
[2019-05-13] MEDS ORDERED: LIDOCAINE 1% INJ 10MG/ML (20 ML MDV) SQ ONE (16:25)
[2019-05-13] MEDS ORDERED: HEPARIN SODIUM 1,000 UN/ML (10ML VL) IV ONE (16:26)
[2019-05-13] MEDS ORDERED: NITROGLYCERIN 1000MCG/10ML SYRINGE INTRACORON ONE (16:30)
[2019-05-13] MEDS ORDERED: IOPAMIDOL-370 125ML BTL INJ ONE (16:50)
[2019-05-13] MEDS ORDERED: IOPAMIDOL-370 100ML BTL INJ ONE (17:01)
[2019-05-13] MEDS: ATORVASTATIN 80 MG TAB PO SCH (19:45)
[2019-05-13] MEDS: traZODone HCL 50 MG TAB PO SCH (19:46)
--- NOTE | 2019-05-13 22:50 | CC ---
CARDIAC CATHETERIZATION REPORT DATE OF SERVICE: May 13, 2019 PERFORMING PHYSICIAN: Ky Cary MD, coagulating drying supervisor. PROCEDURE PERFORMED: 1. Selective right and left coronary angiogram. 2. Left heart catheterization. INDICATION: This is a pleasant 68-year-old gentleman with history of hypertension as well as dyslipidemia who was experiencing symptoms of chest pain with exertion concerning for severe underlying coronary artery disease. He was seen by Dr. Rojo who did recommend proceeding with coronary angiogram. APPROACH: Right radial artery. COMPLICATION: None. LEVEL OF SEDATION: Moderate with sedation length of 14 minutes. PROCEDURE DESCRIPTION: After obtaining an informed consent, the patient was brought to the cardiac senior laboratory technician. The right radial artery was cannulated using micropuncture technique, then I placed a 5 -Swedish sheath in the right radial artery. After [place], [place] [address] units as well as the 2 mg of verapamil IA. I did selective right and left coronary angiogram using JR4 and JL3.5 catheters. Left heart catheterization was performed using the JR4 catheter which flipped into the LV then I did pullback across aortic valve. The procedure was completed without any complication. SELECTIVE CORONARY ANGIOGRAM: 1. The right coronary artery is a medium to large caliber vessel and is a codominant vessel. The ostial RCA has a tight lesion appeared to be in the range of 70% to 80%. Angiographically appeared to be in the range of 70% to 80% and there was dampening in the pressure waveform almost to 0 with sluggish flow in the RCA, bone engaging the RCA using 5-Swedish catheter. 2. The left main is angiographically normal. It bifurcates into left circumflex and left anterior descending artery. 3. The left circumflex is a large caliber vessel. It is a nondominant vessel. The proximal circumflex is angiographically normal and gives rise into the first obtuse marginal branch which appeared to be normal. The mid circumflex is normal and the circumflex distally is normal and bifurcates into PDA and PLV branches, both appeared to be angiographically normal. 4. The LAD: The proximal LAD is normal. It gives rise into the first diagonal branch which seems to be normal. The mid and distal LAD appeared to be angiographically normal. HEMODYNAMICS: The left ventricular end-diastolic pressure appeared to be in the range of 12 mmHg without significant gradient across aortic valve. CONCLUSION: Severe disease involving the ostial right coronary artery. POSTPROCEDURE MANAGEMENT: I will schedule the patient to undergo a PCI of the RCA to be done from the femoral approach. SU / NOHEMYN: [id number] /
[2019-05-14] MEDS: NITROGLYCERIN OINT 1 INCH/GM PACKET TOPICAL SCH ×3 (01:30→18:29)
[2019-05-14] MEDS: METOPROLOL SUCCINATE (ER) 25 MG TAB.ER.24H PO SCH (06:09)
[2019-05-14] MEDS: ASPIRIN 81 MG PO SCH (06:09)
[2019-05-14] MEDS: TAMSULOSIN 0.4 MG CAP.ER.24H PO SCH (06:09)
[2019-05-14] MEDS: PANTOPRAZOLE 40 MG TABLET PO SCH ×2 (06:10→18:29)
[2019-05-14] MEDS: amLODIPine 10 MG TAB PO SCH (06:10)
[2019-05-14 06:24] LABS: Basophils % (A) 1 %; Eosinophils # (A) 0.1 k/uL (0-0.7); Eosinophils % (A) 2 %; HCT 37.1 % (39.0-53.0); Lymphocytes # (A) 0.7 k/uL (1.0-4.8); Lymphocytes % (A) 17 %; MCH 29.7 pg (25.0-35.0); MCHC 32.3 g/dL (31.0-37.0); MCV 91.8 fL (80.0-100.0); Mean Platelet Volume 6.8; Monocytes # (A) 0.3 k/uL (0-1.0); Monocytes % (A) 7 %; Neutrophils # (A) 2.9 k/uL (1.3-7.7); Neutrophils % (A) 72 %; Platelet Count 122 k/uL (150-450); RBC 4.04 m/uL (4.30-5.90); RDW 13.1 % (11.5-15.5); WBC 4.1 k/uL (3.8-10.6)
[2019-05-14] MEDS ORDERED: ASPIRIN 325 MG TAB PO STA (07:55)
[2019-05-14] MEDS: SODIUM CHLORIDE 0.9% 1,000 ML in EMPTY BAG 1 BAG IV ONE ×2 (08:22→10:03)
[2019-05-14 12:10] VITALS: BMI 33.0
[2019-05-14] MEDS ORDERED: LIDOCAINE 1% INJ 10MG/ML (20 ML MDV) ONE (16:35)
[2019-05-14] MEDS ORDERED: IV FLUID CONTINUATION 1,000 ML IV ONE (16:35)
[2019-05-14] MEDS ORDERED: LIDOCAINE 1% INJ 10MG/ML (20 ML MDV) SQ ONE (16:46)
[2019-05-14 16:47] LABS: African American GFR (CKD) >90 (>60 ml/min/1.73 sqM); Anion Gap 6 mmol/L; Blood Urea Nitrogen 12 mg/dL (9-20); Calcium 8.6 mg/dL (8.4-10.2); Carbon Dioxide 25 mmol/L (22-30); Chloride 109 mmol/L (98-107); Glucose 90 mg/dL (74-99); Sodium 140 mmol/L (137-145)
[2019-05-14] MEDS ORDERED: BIVALIRUDIN 250 MG in SODIUM CHLORIDE 0.9% 50 ML IV ONE ×2 (16:48→17:28)
[2019-05-14] MEDS ORDERED: BIVALIRUDIN BOLUS 250 MG/50 ML IV ONE (16:48)
[2019-05-14] MEDS ORDERED: MIDAZOLAM PF (FBP) 2 MG/2 ML VIAL IV ONE (16:48)
[2019-05-14] MEDS ORDERED: NITROGLYCERIN 1000MCG/10ML SYRINGE INTRACORON ONE (17:31)
[2019-05-14] MEDS ORDERED: IOPAMIDOL-370 125ML BTL INJ ONE ×2 (17:37→17:41)
[2019-05-14] MEDS ORDERED: CLOPIDOGREL 75 MG TAB ONE (17:38)
[2019-05-14] MEDS ORDERED: CLOPIDOGREL 75 MG TAB PO ONE (17:42)
[2019-05-14] MEDS ORDERED: ZOLPIDEM 5 MG TAB PO PRN (17:47)
[2019-05-14] MEDS ORDERED: NITROGLYCERIN SL TABS 0.4 MG TAB SUBLINGUAL PRN (17:47)
[2019-05-14] MEDS ORDERED: MAG HYDROX/AL HYDROX/SIMETH 30 ML CUP PO PRN (17:47)
[2019-05-14] MEDS ORDERED: RX INFO: IV CONTRAST WAS GIVEN 1 EACH MISC MISCELLANE PRN (17:47)
[2019-05-14] MEDS ORDERED: ATROPINE SULFATE 0.1 MG/ML 10ML SYRINGE IV PRN (17:47)
[2019-05-14] MEDS ORDERED: SODIUM CHLORIDE 0.9% 1,000 ML IV SCH (18:00)
[2019-05-14 18:20] VITALS: TEMP 97.8
[2019-05-14] MEDS: HEPARIN SOD,PORK IN 0.45% NACL 25,000 UNIT in 0.45% NACL 1 250ML.BAG IV SCH ×2 (18:20→18:29)
--- NOTE | 2019-05-14 19:27 | P.PN ---
Subjective Progress Note Date: 05/14/19 Principal diagnosis: chest pain Patient is a 68-year-old male past medical history of hypertension, dyslipidemia, and fatty liver disease who was transferred to our facility from [facility] for chest pain. He initially was having chest pain for approximately one month. On Wednesday 05/09 his blood pressure worsened and he developed chest pain was nonradiating. He went to [place] emergency room and arrangements are made for outpatient stress test. However his chest pain returned and worsened on 05/11 and he therefore presented again to [facility]. His d-dimer was noted to be elevated and he subsequently underwent a CT chest abdomen and pelvis which demonstrated no evidence of pulmonary embolism or dissection. EKG did not reveal any acute ST T wave changes. His initial troponins were negative. Cardiology was consulted. They felt as though his chest pain was atypical for angina. A 2-D echocardiogram was obtained , cardiac catheterization was recommended. Patient subsequently underwent cardiac catheterization on 05/13 which showed a significant lesion to the right coronary artery. Plans are for stent placement today. Patient seen and examined at bedside. No chest pain or shortness of breath. Feeling anxious and hungry. Objective - Vital Signs Vital signs: Vital Signs Temp 97.8 F 05/14/19 18:16 Pulse 68 05/14/19 19:01 Resp 18 05/14/19 19:01 BP 149/83 05/14/19 19:01 Pulse Ox 97 05/14/19 19:01 Intake & Output 05/14/19 05/14/19 05/15/19 06:59 18:59 06:59 Intake Total 472 150 240 Balance 472 150 240 Weight 104.326 kg Intake: IV 150 Intake, IV Titration 250 Amount Heparin Sod,Pork in 0.45% 250 NaCl 25,000 unit In 0.45 % NaCl 1 250ml.bag @ 9.62 UNITS/KG/HR 10.036 mls/ hr IV .Q24H [facility] Rx#: [id number] Oral 222 240 Other: Voiding Method Toilet Toilet # Voids 1 1 - Exam General: non toxic, no distress, appears at stated age Derm: warm, dry Head: atraumatic, normocephalic, symmetric Eyes: EOMI, no lid lag, anicteric sclera Mouth: no lip lesion, mucus membranes moist Cardiovascular: S1S2 reg, no murmur, positive posterior tibial pulse bilateral, Lungs: decreased breath sounds bilateral, no rhonchi, no rales , no accessory muscle use Abdominal: soft, nontender to palpation, no guarding, no appreciable organomegaly Ext: no gross muscle atrophy, no edema, no contractures Neuro: CN II-XI grossly intact, no focal neuro deficits Psych: Alert, oriented, appropriate affect - Labs CBC & Chem 7: 05/14/19 05:31 05/14/19 16:25 Labs: Abnormal Lab Results - Last 24 Hours (Table) 05/13/19 05/14/19 05/14/19 Range/Units 23:43 05:31 05:31 RBC 4.04 L (4.30-5.90) m/uL Hgb 12.0 L (13.0-17.5) gm/dL Hct 37.1 L (39.0-53.0) % Plt Count 122 L (150-450) k/uL Lymphocytes # 0.7 L (1.0-4.8) k/uL APTT 92.7 H 61.1 H (22.0-30.0) sec Chloride (98-107) mmol/L 05/14/19 Range/Units 16:25 RBC (4.30-5.90) m/uL Hgb (13.0-17.5) gm/dL Hct (39.0-53.0) % Plt Count (150-450) k/uL Lymphocytes # (1.0-4.8) k/uL APTT (22.0-30.0) sec Chloride 109 H (98-107) mmol/L Assessment and Plan Assessment: Unstable angina, with CAD in the RCA -Troponin negative 3 -Cardiology recommendations appreciated -Stent today -Cardiac monitoring -Aspirin, statin -echo with preserved EF Hypertension -norvasc, metoprolol - follow BP HLD - statin DVT prophylaxis:Heparin Discussed with: patient, family, nursing Anticipated discharge date: in AM Anticipated discharge place: home A total of 25 minutes was spent on the care of this complex patient more than 50% of the time was spent in counseling and care coordination.
[2019-05-14] MEDS: traZODone HCL 50 MG TAB PO SCH (20:24)
[2019-05-14] MEDS: ATORVASTATIN 80 MG TAB PO SCH (20:24)
--- NOTE | 2019-05-14 20:55 | PTCA ---
PERCUTANEOUSTRANS CORORONARY ANGIOGRAPHY DATE OF SERVICE: 05/14/2019 PERFORMING PHYSICIAN: Ky Cary MD, harness brusher. PROCEDURE PERFORMED: Successful stenting of the ostial/proximal right coronary artery using a 3.0 x 15 mm Xience drug-eluting stent with an excellent angiographic result and reduction of stenosis from 90% to 0%. INDICATION: This is a pleasant 68-year-old gentleman with hypertension and dyslipidemia who presented to the hospital with chest discomfort and underwent heart catheterization yesterday from right radial approach which revealed critical disease involving the ostial right coronary artery. I attempted angioplasty from right radial approach, but I was unable to get the guide seated in the ostial right coronary artery and because of that he was brought today to undergo a PCI from right femoral approach. COMPLICATIONS: None. LEVEL OF SEDATION: Moderate, with sedation length of 64 minutes. PROCEDURE DESCRIPTION: After obtaining informed consent, the patient was brought to the cardiac cath lab tech. The right common femoral artery was cannulated using micropuncture technique. The micropuncture wire passed easily. I placed a 6-Singaporean sheath. Anticoagulation was initiated using Angiomax. Subsequently I engaged the right using JR4 guide. Initially I tried using JR4 with side-hole, and I was unable. Then using an AL1 I was unable. Then using I was unable. Finally I was able to engage the right using JR4 guide. I wired the RCA using 2 wires. The first one was a run-through and the second one was also a run-through. I did balloon angioplasty using 2.5 x 12 mm balloon before I deployed a 3.0 x 15 mm Xience drug-eluting stent where the stent was positioned under fluoroscopic guidance and deployed under 16 atmospheres for 20 seconds with the following angiogram showing excellent angiographic results. The procedure was completed without any complication. POST-PROCEDURE MANAGEMENT: 1. Dual anti-platelet therapy. 2. Risk factor modifications. 3. Follow up with the patient. MMODL / IJN: [id number] /
[2019-05-14] MEDS: ACETAMINOPHEN TAB 325 MG TAB PO PRN (23:23)
[2019-05-15] MEDS: NITROGLYCERIN OINT 1 INCH/GM PACKET TOPICAL SCH ×2 (01:24→09:03)
[2019-05-15 05:56] VITALS: PULSE 70
[2019-05-15] MEDS: PANTOPRAZOLE 40 MG TABLET PO SCH (06:37)
[2019-05-15 06:53] LABS: HCT 36.5 % (39.0-53.0); MCH 30.3 pg (25.0-35.0); MCHC 32.9 g/dL (31.0-37.0); MCV 91.9 fL (80.0-100.0); Platelet Count 131 k/uL (150-450); RBC 3.97 m/uL (4.30-5.90); RDW 13.3 % (11.5-15.5); WBC 4.2 k/uL (3.8-10.6)
[2019-05-15 07:09] LABS: African American GFR (CKD) >90 (>60 ml/min/1.73 sqM); Anion Gap 10 mmol/L; Blood Urea Nitrogen 13 mg/dL (9-20); Carbon Dioxide 24 mmol/L (22-30); Chloride 108 mmol/L (98-107); Glucose 102 mg/dL (74-99); Potassium 4.1 mmol/L (3.5-5.1); Sodium 142 mmol/L (137-145)
[2019-05-15 08:10] VITALS: BP 148/84; RESP 20
[2019-05-15] MEDS ORDERED: ASPIRIN 325 MG TAB PO SCH (09:00)
[2019-05-15] MEDS ORDERED: CLOPIDOGREL 75 MG TAB PO SCH (09:00)
[2019-05-15] MEDS ORDERED: ASPIRIN 81 MG PO SCH (09:00)
[2019-05-15] MEDS: TAMSULOSIN 0.4 MG CAP.ER.24H PO SCH (09:04)
[2019-05-15] MEDS: amLODIPine 10 MG TAB PO SCH (09:04)
[2019-05-15] MEDS: METOPROLOL SUCCINATE (ER) 25 MG TAB.ER.24H PO SCH (09:04)
--- NOTE | 2019-05-15 09:45 | P.DS ---
Providers Date of admission: 05/12/19 15:33 Expected date of discharge: 05/15/19 Attending physician: Charlie oYung MD Consults: 05/11/19 09:52 Consult Physician Urgent Consulting Provider: Ky Cary Consult Reason/Comments: Chest pain Do you want consulting provider notified?: Yes 05/14/19 17:47 Consult Physician Routine Consulting Provider: [facility] Consult Reason/Comments: Post Interventional patient Do you want consulting provider notified?: Already Contacted Primary care physician: Juan Antonio Taylor MD Hospital Course: Discharge Diagnosis: Unstable angina Coronary artery disease status post PCI to RCA Hypertension Dyslipidemia Hospital Course: Patient is a 68-year-old male past medical history of hypertension, dyslipidemia, and fatty liver disease who was transferred to our facility from [facility] for chest pain. He initially was having chest pain for approximately one month. On Wednesday 05/09 his blood pressure worsened and he developed chest pain that was nonradiating. He went to [place] emergency room and arrangements are made for outpatient stress test. However his chest pain returned and worsened on 05/11 and he therefore presented again to [facility]. His d-dimer was noted to be elevated and he subsequently underwent a CT chest abdomen and pelvis which demonstrated no evidence of pulmonary embolism or dissection. EKG did not reveal any acute ST T wave changes. His initial troponins were negative. Cardiology was consulted. They felt as though his chest pain was atypical for angina. A 2-D echocardiogram was obtained , cardiac catheterization was recommended. Patient subsequently underwent cardiac catheterization on 05/13 which showed a significant lesion to the right coronary artery. On 05/14 Successful stenting of the proximal RCA using a drug-eluting stent. Patient seen and examined at bedside. No chest pain. No shortness of breath. Has been up and ambulating. Vital signs reviewed and stable. General: non toxic, no distress, appears at stated age Derm: warm, dry Head: atraumatic, normocephalic, symmetric Eyes: EOMI, no lid lag, anicteric sclera Mouth: no lip lesion, mucus membranes moist Cardiovascular: S1S2 reg, no murmur, positive posterior tibial pulse bilateral, Lungs: CTA bilateral, no rhonchi, no rales , no accessory muscle use Abdominal: soft, nontender to palpation, no guarding, no appreciable organomegaly Ext: no gross muscle atrophy, no edema, no contractures Neuro: CN II-XI grossly intact, no focal neuro deficits Psych: Alert, oriented, appropriate affect A total of 25 minutes of time were spent preparing this complex discharge summary . Procedures: Cardiac cath-PCI to the RCA Abdominal ultrasound-splenomegaly Echocardiogram-ejection fraction 60-65%, right ventricle severely enlarged Patient Condition at Discharge: Stable Plan - Discharge Summary Discharge Rx Participant: No New Discharge Prescriptions: New Aspirin 81 mg PO DAILY #90 chewable Nitroglycerin Sl Tabs [Nitrostat] 0.4 mg SUBLINGUAL Q5M PRN #100 tab PRN Reason: Chest Pain Clopidogrel Bisulfate [Plavix] 75 mg PO DAILY #90 tab Continue amLODIPine [Norvasc] 10 mg PO DAILY Metoprolol Succinate [Toprol XL] 25 mg PO DAILY Tamsulosin [Flomax] 0.4 mg PO DAILY traZODone HCL [Desyrel] 50 mg PO HS Omeprazole 20 mg PO DAILY Atorvastatin [Lipitor] 80 mg PO HS Discharge Medication List Metoprolol Succinate [Toprol XL] 25 mg PO DAILY 01/29/17 [History] Tamsulosin [Flomax] 0.4 mg PO DAILY 01/29/17 [History] amLODIPine [Norvasc] 10 mg PO DAILY 01/29/17 [History] Atorvastatin [Lipitor] 80 mg PO HS 05/11/19 [History] Omeprazole 20 mg PO DAILY 05/11/19 [History] traZODone HCL [Desyrel] 50 mg PO HS 05/11/19 [History] Aspirin 81 mg PO DAILY #90 chewable 05/15/19 [Rx] Clopidogrel Bisulfate [Plavix] 75 mg PO DAILY #90 tab 05/15/19 [Rx] Nitroglycerin Sl Tabs [Nitrostat] 0.4 mg SUBLINGUAL Q5M PRN #100 tab 05/15/19 [Rx] Follow up Appointment(s)/Referral(s): Ky Cary MD [Family Provider] - 05/22/19 1:45 pm (Saturday) Juan Antonio Taylor MD [Primary Care Provider] - 05/19/19 11:15 am (Saturday) Patient Instructions/Handouts: *Surgery [facility] - After Heart Catheterization - In Service Educator Instructions, Left Heart Catheterization (DC) Activity/Diet/Wound Care/Special Instructions: Activity: as tolerated Diet: Heart healthy
--- NOTE | 2019-05-16 00:50 | PN ---
PROGRESS NOTE Mr. Navarrete is a gentleman who underwent stenting of ostial RCA lesion by Dr. Cary yesterday. His right groin is clean and dry. Pulse is good. Vital signs stable. No JVD. S1/S2 heard normally. Lungs are clear. Abdomen and lower extremity exam unchanged. EKG and labs are unremarkable. He can be discharged and he will see Dr. Cary in 2 weeks. Advised to be on dual antiplatelet therapy, statins and beta blockers. All medications were reviewed and given. Scripts are given. He will be discharged today. MMODL / IJN: [id number] /
== END 2019-05-15 11:40 | disposition home or self-care (01) | DRG 247 ==
LOC: EC 08:42 → 3SCARD 09:52 → 1SOBS 12:57 → OBSVTOIN 05-12 15:33 → 3SCARD 05-14 17:57
PROVIDERS: ADMIT Internal Medicine; ATTEND Internal Medicine
PROC: 4A023N7 Measurement of Cardiac Sampling and Pressure, Left Heart, Percutaneous Approach (ICD-10-PCS; 2019-05-13)
PROC: B2111ZZ Fluoroscopy of Multiple Coronary Arteries using Low Osmolar Contrast (ICD-10-PCS; 2019-05-13)
PROC: 027034Z Dilation of Coronary Artery, One Artery with Drug-eluting Intraluminal Device, Percutaneous Approach (ICD-10-PCS; principal; 2019-05-14 12:15)
DX: I25.110 Atherosclerotic heart disease of native coronary artery with unstable angina pectoris (principal); K86.1 Other chronic pancreatitis; R16.1 Splenomegaly, not elsewhere classified; K76.0 Fatty (change of) liver, not elsewhere classified; I11.9 Hypertensive heart disease without heart failure; E78.5 Hyperlipidemia, unspecified; H91.90 Unspecified hearing loss, unspecified ear; N42.9 Disorder of prostate, unspecified; M15.9 Polyosteoarthritis, unspecified; I08.0 Rheumatic disorders of both mitral and aortic valves; Z79.899 Other long term (current) drug therapy; Z88.8 Allergy status to other drugs, medicaments and biological substances; Z90.49 Acquired absence of other specified parts of digestive tract; Z96.651 Presence of right artificial knee joint; Z80.1 Family history of malignant neoplasm of trachea, bronchus and lung
CPT/HCPCS: 36415; 76700; 80048; 80061; 84484; 85025; 85027; 85730; 93005; 93306; 93458; 96365; 99285; C1874

== ENCOUNTER 2019-11-13 08:02 | Day surgery (SDC) | payer MEDICARE, OTHER ==
[~2019-11-13 08:02] MED LIST changes: +ALPRAZolam 0.25 MG TAB PO PRN; +ALPRAZolam 0.5 MG TAB PO PRN; +ASPIRIN 325 MG TAB PO ONE; -DEXAMETHASONE SOD PHOSPHATE 10 MG/ML 1 ML VIAL IV ONE; -HEPARIN SODIUM,PORCINE 5,000 UNIT/ML 1 ML VIAL SQ ONE; -LACTATED RINGERS 1,000 ML IV SCH; -LIDOCAINE 1% 20 ML VIAL (10MG/ML) FOR IV START INTRADERMA PRN; -MIDAZOLAM 2 MG/2 ML VIAL IV PRN; +NITROGLYCERIN SL TABS 0.4 MG TAB SUBLINGUAL PRN; -ONDANSETRON 4 MG/2 ML VIAL IVP ONE; -SCOPOLAMINE 1.5MG/72HR PATCH TRANSDERM ONE; +SODIUM CHLORIDE 0.9% 1,000 ML in EMPTY BAG 1 BAG IV ONE; -ceFAZolin 2 GM in SODIUM CHLORIDE 0.9% 100 ML IVPB ONE
[2019-11-13] MEDS: ASPIRIN 81 MG ONE ×2 (08:12→08:13)
[2019-11-13 08:24] VITALS: RESP 16; TEMP 97.8
[2019-11-13 08:27] LABS: Basophils % (A) 1 %; Eosinophils # (A) 0.1 k/uL (0-0.7); Eosinophils % (A) 2 %; HCT 44.9 % (39.0-53.0); HGB 14.7 gm/dL (13.0-17.5); Lymphocytes # (A) 1.1 k/uL (1.0-4.8); Lymphocytes % (A) 20 %; MCH 29.5 pg (25.0-35.0); MCHC 32.8 g/dL (31.0-37.0); MCV 89.9 fL (80.0-100.0); Mean Platelet Volume 7.6; Monocytes # (A) 0.4 k/uL (0-1.0); Monocytes % (A) 6 %; Neutrophils # (A) 3.8 k/uL (1.3-7.7); Neutrophils % (A) 69 %; Platelet Count 149 k/uL (150-450); RDW 13.6 % (11.5-15.5); WBC 5.6 k/uL (3.8-10.6)
[2019-11-13 08:54] LABS: African American GFR (CKD) >90 (>60 ml/min/1.73 sqM); Anion Gap 9 mmol/L; Blood Urea Nitrogen 17 mg/dL (9-20); Calcium 9.2 mg/dL (8.4-10.2); Carbon Dioxide 23 mmol/L (22-30); Chloride 108 mmol/L (98-107); Glucose 118 mg/dL (74-99); Non-African American GFR(CKD) >90 (>60 ml/min/1.73 sqM); Potassium 4.3 mmol/L (3.5-5.1); Sodium 140 mmol/L (137-145)
[2019-11-13] MEDS ORDERED: LIDOCAINE 1% INJ 10MG/ML (20 ML MDV) SQ ONE (08:54)
[2019-11-13] MEDS ORDERED: MIDAZOLAM 2 MG/2 ML VIAL IV ONE (08:54)
[2019-11-13] MEDS: HYDROmorphone 1 MG/ML 1 ML SYRINGE IVP ONE ×2 (09:00→09:04)
[2019-11-13] MEDS ORDERED: IOPAMIDOL-370 125ML BTL INJ ONE (09:08)
[2019-11-13] MEDS ORDERED: RX INFO: IV CONTRAST WAS GIVEN 1 EACH MISC MISCELLANE PRN (09:12)
[2019-11-13] MEDS ORDERED: SODIUM CHLORIDE 0.9% 1,000 ML IV SCH (09:15)
--- NOTE | 2019-11-13 09:18 | P.PCN ---
Date of Procedure: 11/13/19 Operative Findings: CARDIAC CATHETERIZATION PERFORMING PHYSICIAN: Ky Cary MD, RPVI PROCEDURE PERFORMED: 1. Selective right and left coronary angiogram 2. Left heart catheterization INDICATION: This is a very pleasant 69-year-old gentleman with history of coronary artery disease and prior stenting of the ostial RCA was seen in the office yesterday for new onset symptoms of chest discomfort concerning for angina. Because of that a heart catheterization was advised COMPLICATION: None APPROACH: Right common femoral artery LEVEL OF SEDATION: Moderate with sedation length of 16 minutes PROCEDURE DESCRIPTION: After obtaining an informed consent, the patient was brought to cardiac labor employment associate. Local anesthesia was performed using lidocaine subcutaneously. The right common femoral artery was cannulated using Seldinger technique, the guidewire passed easily, following that we advanced a 6 Guamanian sheath dilator assembly, the wire and dilator were removed and sheath was flushed. Selective right and left coronary angiogram using a 6-Guamanian JR4 and JL bro[place] ters. Following that we did left heart catheterization using 6-Guamanian pigtail catheter. The procedure was completed there was no complication. SELECTIVE CORONARY ANGIOGRAM: The right coronary artery: Is a large caliber vessel and codominant vessel. The ostial RCA is a stented and the stent is patent. The mid and distal RCA appears to have mild disease only. Left main: Is angiographically normal. Bifurcates into LCx and LAD. The left circumflex: Is a large caliber vessel and codominant vessel. The proximal LCx is angiographically normal and gives rises into OM1 which appears to be normal. The mid LCx is normal. It gives rises into second OM branch which appeared to be angiographically normal. Also gives rises into a third OM branch which appeared to be angiographically normal. The circumflex distally bifurcates into PDA and PLV branches both appeared to be angiographically normal. The left anterior descending artery: It is a large caliber vessel. Its angiographically normal. The proximal portion gives rises into a large diagonal branch which seems to be angiographically normal. HEMODYNAMICS: The LVEDP was 8-12 mmHg without significant gradient across aortic valve CONCLUSION: 1. Patent stent in the ostial RCA 2. Normal left coronary system 3. Normal LVEDP POSTPROCEDURE MANAGEMENT: 1. Medical treatment 2. Follow-up with the patient
[2019-11-13 12:35] VITALS: BP 114/59; PULSE 65
== END 2019-11-13 14:22 | disposition home or self-care (01) ==
LOC: CATHCVL 08:02
PROVIDERS: ATTEND Internal Medicine Interventional Cardiology
DX: I25.110 Atherosclerotic heart disease of native coronary artery with unstable angina pectoris (principal); I10 Essential (primary) hypertension; E78.5 Hyperlipidemia, unspecified; E78.00 Pure hypercholesterolemia, unspecified; Z95.5 Presence of coronary angioplasty implant and graft; Z79.02 Long term (current) use of antithrombotics/antiplatelets; Z79.82 Long term (current) use of aspirin; Z79.899 Other long term (current) drug therapy
CPT/HCPCS: 80048; 85025; 93458; J2250; J2001; J1170; Q9967

== ENCOUNTER → 2020-10-14 | Outpatient (CLI) | payer MEDICARE, OTHER ==
[2020-10-14 10:16] LABS: HCT 39.8 % (39.0-53.0); HGB 13.8 gm/dL (13.0-17.5); MCH 31.3 pg (25.0-35.0); MCHC 34.7 g/dL (31.0-37.0); MCV 90.3 fL (80.0-100.0); Platelet Count 123 k/uL (150-450); RBC 4.41 m/uL (4.30-5.90); RDW 13.3 % (11.5-15.5); WBC 4.9 k/uL (3.8-10.6)
[2020-10-14 10:28] LABS: Partial Thromboplastin Time 22.2 sec (22.0-30.0); Prothrombin Time 10.4 sec (9.0-12.0)
[2020-10-14 10:29] LABS: ALT 21 U/L (4-49); AST 27 U/L (17-59); African American GFR (CKD) >90 (>60 ml/min/1.73 sqM); Albumin 4.1 g/dL (3.5-5.0); Alkaline Phosphatase 46 U/L (38-126); Anion Gap 5 mmol/L; Blood Urea Nitrogen 21 mg/dL (9-20); Calcium 9.1 mg/dL (8.4-10.2); Carbon Dioxide 29 mmol/L (22-30); Chloride 105 mmol/L (98-107); Glucose 103 mg/dL (74-99); Non-African American GFR(CKD) >90 (>60 ml/min/1.73 sqM); Potassium 4.5 mmol/L (3.5-5.1); Sodium 139 mmol/L (137-145); Total Bilirubin 1.7 mg/dL (0.2-1.3); Total Protein 6.8 g/dL (6.3-8.2)
[2020-10-14 11:16] LABS: Amorphous Sediment,Urine Rare /hpf; Appearance,Urine Cloudy (Clear); Bilirubin,Urine Negative (Negative); Blood,Urine Negative (Negative); Color,Urine Yellow; Glucose,Urine (UA) Negative (Negative); Ketones,Urine Negative (Negative); Leukocyte Esterase,Urine Negative (Negative); Mucus,Urine Few /hpf; Nitrite,Urine Negative (Negative); Protein,Urine Trace (Negative); RBC,Urine 2 /hpf (0-5); Specific Gravity,Urine 1.029 (1.001-1.035); Squamous Epithelial Cell,Urine <1 /hpf (0-4); WBC,Urine 3 /hpf (0-5)
== END | disposition home or self-care (01) ==
LOC: LABPAT 08:53
PROVIDERS: ATTEND Orthopaedic Surgery Sports Medicine
DX: Z01.812 Encounter for preprocedural laboratory examination (principal); Z79.01 Long term (current) use of anticoagulants
CPT/HCPCS: 36415; 80053; 81001; 85027; 85610; 85730; 87070; 93005

== ENCOUNTER → 2020-10-14 | Outpatient (CLI) | payer MEDICARE, OTHER ==
--- NOTE | 2020-10-14 10:03 | CT ---
EXAMINATION TYPE: CT shoulder RT wo con DATE OF EXAM: 10/14/2020 COMPARISON: None. HISTORY: Right shoulder rotator cuff injury, pain, capsule sprain, rupture of the extensor tendons, o ther injury of muscle and tendon of long head of biceps, primary osteoarthritis, AC joint osteoarthri tis, advanced rotator cuff arthropathy, status post rotator cuff repair and labral debridement/subacr omial decompression on December 24, 2016. CT DLP: 405.70 mGycm Automated exposure control for dose reduction was used. FINDINGS: Acromioclavicular joint shows severe narrowing with moderate-size inferior distal clavicle spur. Most prominent narrowing is seen along the posterior-inferior aspect. There is subchondral cystic change in the distal clavicle. Moderate severe superior capsular hypertrophy. Distal acromion shows a small lateral spur coronal image 39. Glenohumeral joint shows moderate to severe narrowing greatest inferiorly with moderate to large size inferior humeral head spur coronal image 39. Mild spurring from the osseous glenoid greatest superio r aspect. There is well-defined 7 mm triangular ossific fragment from the anterior glenoid mid aspect axial images 21 through 25 could reflect old osseous glenoid avulsion injury. No significant retrove rsion. The humeral head shows subchondral cystic change and spurring along the superior lateral aspect. Ther e is esut-sm-gubvzkaf generalized fat replaced atrophy of the supraspinatus and infraspinatus muscle bulk. Deltoid muscular bulk preserved. Poor visualization of long head biceps tendon on CT. Visualized ribs and scapula are intact. Visualized right lung is clear. IMPRESSION: As above.
== END | disposition home or self-care (01) ==
LOC: RADCTMAIN 08:07
PROVIDERS: ATTEND Orthopaedic Surgery Sports Medicine
DX: M62.511 Muscle wasting and atrophy, not elsewhere classified, right shoulder (principal); M77.8 Other enthesopathies, not elsewhere classified

== ENCOUNTER → 2020-11-29 | Outpatient (CLI) | payer MEDICARE, OTHER ==
[2020-11-29 12:08] LABS: ALT 15 U/L (4-49); AST 23 U/L (17-59); African American GFR (CKD) >90 (>60 ml/min/1.73 sqM); Albumin 3.8 g/dL (3.5-5.0); Alkaline Phosphatase 48 U/L (38-126); Anion Gap 5 mmol/L; Blood Urea Nitrogen 18 mg/dL (9-20); Carbon Dioxide 27 mmol/L (22-30); Chloride 108 mmol/L (98-107); Glucose 125 mg/dL (74-99); Non-African American GFR(CKD) 90 (>60 ml/min/1.73 sqM); Potassium 4.5 mmol/L (3.5-5.1); Sodium 140 mmol/L (137-145); Total Bilirubin 1.6 mg/dL (0.2-1.3); Total Protein 6.5 g/dL (6.3-8.2)
[2020-11-29 12:24] LABS: Partial Thromboplastin Time 22.4 sec (22.0-30.0); Prothrombin Time 10.4 sec (9.0-12.0)
[2020-11-29 12:29] LABS: Appearance,Urine Clear (Clear); Bilirubin,Urine Negative (Negative); Blood,Urine Negative (Negative); Color,Urine Yellow; Glucose,Urine (UA) Negative (Negative); Ketones,Urine Negative (Negative); Leukocyte Esterase,Urine Trace (Negative); Mucus,Urine Many /hpf; Nitrite,Urine Negative (Negative); Protein,Urine Trace (Negative); RBC,Urine 1 /hpf (0-5); Specific Gravity,Urine 1.029 (1.001-1.035); Squamous Epithelial Cell,Urine <1 /hpf (0-4); WBC,Urine 1 /hpf (0-5)
[2020-11-29 12:37] LABS: HCT 37.9 % (39.0-53.0); HGB 13.3 gm/dL (13.0-17.5); MCH 31.8 pg (25.0-35.0); MCV 91.1 fL (80.0-100.0); Mean Platelet Volume 7.5; Platelet Count 138 k/uL (150-450); RBC 4.16 m/uL (4.30-5.90); RDW 13.3 % (11.5-15.5); WBC 4.3 k/uL (3.8-10.6)
== END | disposition home or self-care (01) ==
LOC: LABPAT 10:42
PROVIDERS: ATTEND Orthopaedic Surgery Sports Medicine
DX: Z01.818 Encounter for other preprocedural examination (principal); Z79.01 Long term (current) use of anticoagulants
CPT/HCPCS: 36415; 80053; 81001; 85027; 85610; 85730

== ENCOUNTER 2020-12-08 10:27 | Day surgery (SDC) | payer MEDICARE, OTHER ==
[2020-12-01 13:34] VITALS: BMI 33.0
--- NOTE | 2020-12-08 08:53 | P.ANPRN ---
Procedure Note - Anesthesia - Nerve Block Performed Right Interscalene Time Out Performed: Yes (07:20) Date of Procedure: 12/08/20 Procedure Start Time: : Procedure Stop Time: :34 Location of Patient: PreOp Indication: Acute Post-Operative Pain, Requested by Surgeon (Dr Cortés) Sedation Type: Sedate with meaningful contact maintained Preparation: Sterile Prep Position: Supine Catheter: None Needle Types: Pajunk Needle Gauge: Other (see comment) (22g) Ultrasound used to visualize needle placement: Yes Ultrasound used to observe medication spread: Yes Injectate: 0.5% Ropivacaine (see comment for volume) (20cc + Decadron 4mg) Blood Aspirated: No Pain Paresthesia on Injection Noted: No Resistance on Injection: Normal Image Stored and Saved: Yes Events: Uneventful and Well Tolerated
[~2020-12-08 10:27] MED LIST changes: +ACETAMINOPHEN TAB 500 MG TAB PO PRN; -ALPRAZolam 0.25 MG TAB PO PRN; -ALPRAZolam 0.5 MG TAB PO PRN; -ASPIRIN 325 MG TAB PO ONE; +DEXAMETHASONE SOD PHOSPHATE 4 MG/ML 1 ML VIAL IV ONE; +DEXAMETHASONE SOD PHOSPHATE 4 MG/ML 1 ML VIAL ONE; +GABAPENTIN 300 MG CAP PO PRN; +GLYCOPYRROLATE 0.2 MG/ML 2 ML VIAL ONE; +HYDROmorphone 0.5 MG/0.5 ML SYRINGE IVP PRN; +LACTATED RINGERS 1,000 ML IV ONE; +LIDOCAINE 1% INJ 10MG/ML (20 ML MDV) ONE; +MELOXICAM 7.5 MG TAB PO PRN; +METOCLOPRAMIDE 5 MG/ML 2 ML VIAL IVP PRN; +MIDAZOLAM 2 MG/2 ML VIAL IVP ONE; +NEOSTIGMINE 1 MG/ML 10 ML VIAL ONE; -NITROGLYCERIN SL TABS 0.4 MG TAB SUBLINGUAL PRN; +ONDANSETRON 4 MG/2 ML VIAL IVP ONE; +ONDANSETRON 4 MG/2 ML VIAL IVP PRN; +PHENYLEPHRINE-0.9% NACL SYG 1,000 MCG/10 ML SYRINGE ONE; +PROPOFOL 10 MG/ML 20 ML VIAL IV ONE; +ROCURONIUM 10 MG/ML (5 ML VIAL) IV ONE; +ROPIVACAINE 5 MG/ML 30 ML VIAL ONE; +ROPIVACAINE/EPI/CLONIDINE/KET 50 ML SYRINGE MISCELLANE PRN; +SENNOSIDES-DOCUSATE SODIUM 1 EACH TAB PO PRN; -SODIUM CHLORIDE 0.9% 1,000 ML in EMPTY BAG 1 BAG IV ONE; +SODIUM CHLORIDE 0.9% 100 ML BAG ONE; +SUCCINYLCHOLINE CHLORIDE 100 MG/5 ML SYR IV ONE; +TRANEXAMIC ACID 1,000 MG in SODIUM CHLORIDE 0.9% 100 ML IVPB PRN; +TRANEXAMIC ACID 1,000 MG/10 ML VIAL ONE; +ceFAZolin 3,000 MG in SODIUM CHLORIDE 0.9% IRRIGATIO 3,000 ML IRRIGATION ONE; +ePHEDrine SULFATE/0.9% NACL/PF 50 MG/5 ML SYRINGE IV ONE; +fentaNYL (PF) 50 MCG/ML 2 ML AMP ONE; +hydrOXYzine pamoate 25 MG CAP PO PRN
[2020-12-08] MEDS ORDERED: HYDROcodone/APAP 7.5-325MG 1 EACH TAB PO PRN (10:32)
[2020-12-08] MEDS ORDERED: LACTATED RINGERS 1,000 ML IV ONE (11:00)
[2020-12-08] MEDS: HYDROmorphone 0.5 MG/0.5 ML SYRINGE IVP PRN ×2 (11:00→11:15)
--- NOTE | 2020-12-08 11:13 | OP ---
OPERATIVE REPORT DATE OF PROCEDURE: 12/08/2020. SURGEON: Bill Cortés MD. J2EE ENGINEER: Adolph SALDAÑA. PREOPERATIVE DIAGNOSIS: Right shoulder advanced rotator cuff arthropathy. POSTOPERATIVE DIAGNOSIS: Right shoulder advanced rotator cuff arthropathy. OPERATION: Right reverse total shoulder arthroplasty. ANESTHESIA: General endotracheal. ESTIMATED BLOOD LOSS: 300 mL. DRAINS: One deep drain. COMPLICATIONS: None apparent. DISPOSITION: Postanesthesia care unit. INDICATIONS: Mr. Navarrete is a very pleasant 70-year-old gentleman with long-standing right shoulder pain. Workup including x-rays and CT scan revealed advanced rotator cuff osteoarthrosis of the right shoulder. At this point, it is felt that he has failed conservative management and he would like to proceed with operative intervention. The risks of procedure were discussed with him in detail. These risks include, but are not limited to risk of infection, nerve damage, bleeding, pain, instability in the shoulder, loosening of the implants and deep infection. There is also risk of deep vein thrombosis which could lead to fatal pulmonary embolism. The patient understood the risks. All of his questions with regards to risks were answered to his satisfaction. Appropriate informed consent was obtained. DESCRIPTION OF PROCEDURE: Patient identified in preoperative holding area. Surgical site was marked by both the patient and myself. He was given 2 grams of Ancef IV for prophylactic purposes. He was then transported to the operative suite. He was placed supine on the operating room table. General anesthetic was then administered and dosed per the anesthesia department without apparent complication. Examination under anesthesia was performed of the right shoulder. He had elevation of 120 degrees, external rotation to the side was at 30 degrees. The patient was then placed into the beach chair position well-padded in preparation for surgery. Great care was taken to ensure that his cervical spine was in neutral alignment, well-padded and maintained that way throughout the operative procedure. Great care was also taken to ensure that his legs were appropriately padded as well. The patient's right upper extremity was then prepped and draped in usual sterile fashion. Standard surgical pause was undertaken to ensure that appropriate preoperative antibiotics had been given and that we were operating on the correct site. All staff in the room were in agreement and we proceeded. The acromion, AC joint, clavicle and coracoid were marked with surgical pen. A planned incision starting at the level of the clavicle and extending distally over the deltopectoral interval approximately 1 cm lateral to the coracoid was marked with surgical pen. The incision was then made with a 10 blade scalpel. Dissection carried down sharply to the deltoid fascia. The deltopectoral interval was then identified at the level of the clavicle. A small band retractor then placed onto the proximal deltoid. I then released the deltoid fascia on the lateral aspect of the cephalic vein. The vein was preserved and left in its bed medially. The cephalic vein was then protected throughout the entire case. I then identified the clavipectoral fascia. This was incised proximally to the level of the coracoacromial ligament. The coracoacromial ligament was left intact. I then used my finger to spread the interval between the conjoint tendon of the subscapularis. I felt for the axillary nerve which was readily palpable. I then cleared the subacromial and subdeltoid spaces of bursal and scar tissue. I then utilized a Valente retractor to hold the deltoid and expose the humeral head. I then proceeded to release the subscapularis on the anterior inferior shoulder capsule. The rotator cuff was inspected. The supraspinatus was completely retracted and torn. There was very small amount of infraspinatus, which was still attached. I then released the rotator interval to the level of coracoid. The subscapularis and the anterior capsule were then released intratendinously. The subscapularis and capsule release extended distally in a lazy-S fashion approximately 1 cm medial to the biceps tendon. I then continued to release the capsule along the inferior neck in a vertical fashion to approximately the 6 o'clock position. Great care was taken to ensure the capsule was always visualized as it was released to avoid injuring the axillary nerve. I then brought a Tobar accounting clerk with the arm externally rotated and abducted. I continued to release the capsule inferomedially to the 4 o'clock position. The inferior osteophytes were now removed as well. This was done with a rongeur. I then proceeded with the preparation of the humerus. I removed all the goat's rivera osteophytes. I then removed the subchondral plate from the superior aspect of the humeral head utilizing a large rongeur. I then utilized a starting reamer to gain access to the humeral canal. This was 1 cm medial to the rotator cuff insertion and 1 cm posterior to the bicipital groove. I then prepared the humeral canal with hand reaming. I started with a 6 mm reamer and incrementally increased until firm resistance was encountered at 14 mm. The reamer handle was then left in place. I then utilized a humeral resection guide. This was set at 30 degrees of retrotorsion. The cutting block was then set at the level of the insertion of the rotator cuff. I then proceeded to osteotomized the head with an oscillating saw. I removed the resection guide and then completed the osteotomy. I then proceeded to a trial stem placement. Trial size 14 was broached starting with a size 10 broach up to a 14 mm broach. The 14 mm trial stem was then left in place. At this point, I inspected the joint. A bone hook was used to pull the humerus out laterally. There was multiple fairly large loose bodies in the joint. These were then removed. Again the rotator cuff was inspected. The supraspinatus was completely torn and the anterior part of the infraspinatus was also torn and retracted as well. A Bhattman retractor was then placed on the posterior glenoid rim. The arm was then placed in approximately 80 degrees of abduction and in slight flexion on the Tobar stand. I then proceeded to remove the hypertrophic labrum to definitively identify the actual glenoid. I then selected a mini base plate guide. I utilized starting drill to make the centering hole and the pin was then advanced in approximately 10 degrees of inferior tilt. I then proceeded to ream the glenoid fossa with a mini reamer. This was taken down as minimal as possible just to preserve as much subchondral bone as possible. I then proceeded to place the mini base plate. This was impacted into the glenoid firmly. I then proceeded with placement of the center screw. A 25 mm central screw was then placed. The screw had excellent purchase in bone. I was able to rotate the scapula through the screwdriver when the screw was firmly seated. I then placed the peripheral locking screws. The superior screw was a 15 mm x 5 mm locking screw. The anterior screw was 20 mm x 5 mm locking screw. The inferior screw was a 25 mm x 5 mm locking screw. I then had the key account representative open a standard 36 mm glenosphere. The offset was then done as to offset the glenosphere as much as possible. This was then impacted onto a dry Roy taper on the mini base plate. I then proceeded to trial with the real glenosphere in place. I started with a standard base plate and standard poly. This was a little loose. I then upsized to a +3 poly and this felt much better. It was stable throughout a full range of motion. There was appropriate amount of tension on the conjoined tendon. I decided to go forward with a standard base plate and the +3 poly. The shoulder was then again carefully re-dislocated. The trial stem and the trial tray were removed. I had the key account representative open a Biomet size 14 mini humeral stem standard base plate and a +3 poly. The stem was then impacted into the proximal humerus in approximately 30 degrees of retrotorsion. The +3 poly was snapped onto the base plate on the back table. The base plate was then placed onto the stem with a dry Roy taper. The shoulder was again reduced. It was relatively difficult reduction. The shoulder was very stable throughout a full range of motion. The conjoined tendon had a appropriate tension. I felt for the axillary nerve which was intact. At this point in time no further work seemed necessary. The shoulder was thoroughly irrigated with sterile saline solution with antibiotic added. A deep drain was then placed deep to the deltoid and brought out superiorly away from the incision. Approximately 500 mg of vancomycin powder was then placed deep in the wound. The deltopectoral interval was loosely closed with 0 Vicryl interrupted suture. The subcutaneous tissue was then again irrigated with sterile saline solution with antibiotic added via pulse lavage. The remaining 500 mg of vancomycin powder was then placed subcutaneously. The subcutaneous tissue was closed with 2-0 Vicryl interrupted suture. The skin was closed with running 3-0 Quill suture. Dermabond was applied to the incision. Sterile compressive dressing was applied. The patient's right upper extremity was placed into a standard sling. All sponge and needle counts were deemed correct prior to closure. The patient tolerated the procedure without apparent complication. He was transferred to recovery room in stable condition. MMODL / IJN: [id number] /
--- NOTE | 2020-12-08 11:31 | XR ---
EXAMINATION TYPE: XR shoulder limited RT DATE OF EXAM: 12/08/2020 CLINICAL HISTORY: Right shoulder pain and osteoarthritis. TECHNIQUE: Single postoperative view right shoulder is obtained. COMPARISON: CT right shoulder October 14, 2020. FINDINGS: There is new metallic hardware from reverse right total shoulder arthroplasty. Prosthesis position appears satisfactory with adjacent gas from recent surgery. There is percutaneous drainage c atheter inferiorly noted. Diminished inspiration in the visualized right lung with patchy atelectatic change noted. IMPRESSION: As above.
[2020-12-08] MEDS: LACTATED RINGERS 1,000 ML IV SCH ×3 (14:31→21:54)
[2020-12-08] MEDS ORDERED: NITROGLYCERIN SL TABS 0.4 MG TAB SUBLINGUAL PRN (16:10)
--- NOTE | 2020-12-08 16:12 | P.CONS ---
History of Present Illness - Reason for Consult Consult date: 12/08/20 Medical management - Chief Complaint medical management - History of Present Illness 70 year old man with CAD/HTN/HLD presented for elective right shoulder arthroplasty. Medicine consulted by ortho service for medical management. Patient is doing well post-operatively with no complaints at this time other than some mild numbness of his thumb. He denies f/c, n/v/c/d, cp, abd pain, dyspnea, palps, dysuria, dyschezia, weakness of extremities. Pt is HDS and mentating well. Labs and images reviewed. Review of Systems All Systems reviewed and pertinent positives and negatives noted in HPI, all other symptoms are negative Past Medical History Past Medical History: Coronary Artery Disease (CAD), Hyperlipidemia, Hypertensio n, Osteoarthritis (OA), Prostate Disorder Additional Past Medical History / Comment(s): pancreatitis.,slight heart valve leak, BPH, Right Shoulder Pain. History of Any Multi-Drug Resistant Organisms: None Reported Past Surgical History: Cholecystectomy, Heart Catheterization With Stent, Hernia Repair, Joint Replacement, Orthopedic Surgery Additional Past Surgical History / Comment(s): R & L Knee replaced; R & L shoulder arthroscopic surgeries, umbilical hernia repair with mesh, incisional hernia repair, EGD, ERCP, colonoscopy, total right shoulder Past Anesthesia/Blood Transfusion Reactions: No Reported Reaction Date of Last Stent Placement:: May 2019 Past Psychological History: No Psychological Hx Reported Additional Psychological History / Comment(s): . Smoking Status: Never smoker Past Alcohol Use History: Occasional Past Drug Use History: None Reported - Past Family History Father Family Medical History: Cancer Additional Family Medical History / Comment(s): LUNG CANCER Mother Family Medical History: Cancer Additional Family Medical History / Comment(s): LUNG CANCER Sister(s) Family Medical History: Cancer Additional Family Medical History / Comment(s): BREAST CANCER Medications and Allergies Home Medications Medication Instructions Recorded Confirmed Type amLODIPine [Norvasc] 10 mg PO DAILY 01/29/17 12/08/20 History traZODone HCL [Desyrel] 50 mg PO HS 05/11/19 12/08/20 History Aspirin 81 mg PO DAILY #90 chewable 05/15/19 12/08/20 Rx Nitroglycerin Sl Tabs [Nitrostat] 0.4 mg SUBLINGUAL Q5M PRN #100 tab 05/15/19 12/08/20 Rx Alfuzosin HCl [Uroxatral ER] 10 mg PO HS 12/01/20 12/08/20 History Isosorbide Mononitrate ER [Imdur] 60 mg PO DAILY 12/01/20 12/08/20 History Metoprolol Succinate (ER) [Toprol 100 mg PO DAILY 12/01/20 12/08/20 History Xl] Rosuvastatin Calcium [Crestor] 20 mg PO HS 12/01/20 12/08/20 History Allergies Allergy/AdvReac Type Severity Reaction Status Date / Time lisinopril AdvReac Cough Verified 12/08/20 07:13 Physical Exam Osteopathic Statement: *. No significant issues noted on an osteopathic structural exam other than those noted in the History and Physical/Consult. Vitals: Vital Signs Temp Pulse Resp BP BP Pulse Ox 12/08/20 14:01 97.4 F L 56 L 18 135/72 95 12/08/20 13:30 60 16 99/60 95 12/08/20 12:30 55 L 16 112/66 95 12/08/20 12:00 56 L 16 111/60 94 L 12/08/20 11:30 62 18 108/71 94 L 12/08/20 11:15 63 16 105/56 95 12/08/20 11:00 54 L 17 94/55 95 12/08/20 10:45 91 16 96/54 96 12/08/20 10:30 61 16 115/67 97 12/08/20 10:16 96.9 F L 67 16 115/67 100 12/08/20 07:45 100/65 12/08/20 06:41 97.8 F 66 16 151/72 95 Intake and Output 12/08/20 12/08/20 12/08/20 06:59 14:59 22:59 Intake Total 450 1251 Output Total 300 Balance 450 951 Intake: IV 450 1251 Output: Estimated Blood Loss 300 Other: Weight 104.5 kg 104.5 kg Gen: awake, alert HEENT: normocephalic, atraumatic, good hearing acuity, moist mucous membranes Resp: good air exchange, breathing comfortably with no accessory muscle use CVS: good distal perfusion x 4, GI: soft, NTTP, ND : no SPT, no CVAT, moran catheter not present MSK: no pitting edema, no clubbing Neuro: non-focal, moving all extremities Psych: cooperative, euthymic mood Assessment and Plan Assessment: CAD HTN HLD -Continue home medications -Patient's home aspirin can be resumed at the earliest convenience, once cleared by surgery Right shoulder arthroplasty -Pain control and DVT prophylaxis per primary team Patient is full code Medicine will continue to follow until discharge, please contact us if any questions/concerns.
[2020-12-08 19:39] VITALS: RESP 20
[2020-12-08] MEDS ORDERED: traZODone HCL 50 MG TAB PO SCH (21:00)
[2020-12-08] MEDS ORDERED: TAMSULOSIN 0.4 MG CAP.ER.24H PO SCH (21:00)
[2020-12-08] MEDS ORDERED: ATORVASTATIN 40 MG TAB PO SCH (21:00)
[2020-12-08] MEDS: HYDROmorphone 0.2 MG/1 ML SYRINGE IVP PRN (22:16)
[2020-12-09] MEDS: HYDROcodone/APAP 7.5-325MG 1 EACH TAB PO PRN ×2 (00:23→05:57)
[2020-12-09] MEDS: HYDROmorphone 0.2 MG/1 ML SYRINGE IVP PRN (03:57)
[2020-12-09] MEDS: LACTATED RINGERS 1,000 ML IV SCH ×2 (06:05)
[2020-12-09 08:54] VITALS: BP 137/68; PULSE 57; TEMP 98.9
[2020-12-09] MEDS ORDERED: amLODIPine 10 MG TAB PO SCH (09:00)
[2020-12-09] MEDS ORDERED: METOPROLOL SUCCINATE (ER) 100 MG TAB.ER.24H PO SCH (09:00)
[2020-12-09] MEDS ORDERED: ISOSORBIDE MONONITRATE ER 60 MG TAB.ER.24H PO SCH (09:00)
--- NOTE | 2020-12-09 10:29 | P.DS ---
Providers Date of admission: 12/08/20 06:06 Expected date of discharge: 12/09/20 Attending physician: Bill Cortés Consults: 12/08/20 10:27 Consult Physician Routine Consulting Provider: Ugo English Consult Reason/Comments: post op medical management Do you want consulting provider notified?: Yes Primary care physician: Juan Antonio Taylor MD - Discharge Diagnosis(es) (1) Osteoarthritis of right shoulder Patient was admitted to the OR on 12/08/20 to undergo a right total shoulder arthroplasty. He had failed conservative measures as an outpatient and desired to proceed with elective surgery after given informed consent. He underwent the above procedure which he tolerated well without complication. Postoperative hospital course has remained without complication. On day of discharge he is afebrile, vital signs stable, labs within acceptable ranges, tolerating by mouth meds and diet, voiding without difficulty, positive flatus, denies abdominal pain or calf pain, pain is controlled on oral pain medication and has no new complaints. Wound is benign, neurovascular status is intact, calves are soft and nontender, abdomen soft and nontender. Review of systems is negative for numbness, tingling, fever, chills, chest pain, shortness of breath, nausea, vomiting, dizziness, headaches, slurred speech or other. Current Visit: Yes Status: Acute Priority: Medium Procedures: Right TSA Patient Condition at Discharge: Good Plan - Discharge Summary Discharge Rx Participant: Yes New Discharge Prescriptions: New Docusate [Colace] 100 mg PO BID #60 capsule Doxycycline Hyclate 100 mg PO BID #10 tab HYDROcodone/APAP 10-325MG [[place] 10-325] 1 tab PO Q4HR PRN #42 tab PRN Reason: Pain No Action amLODIPine [Norvasc] 10 mg PO DAILY traZODone HCL [Desyrel] 50 mg PO HS Aspirin 81 mg PO DAILY #90 chewable Nitroglycerin Sl Tabs [Nitrostat] 0.4 mg SUBLINGUAL Q5M PRN #100 tab PRN Reason: Chest Pain Rosuvastatin Calcium [Crestor] 20 mg PO HS Alfuzosin HCl [Uroxatral ER] 10 mg PO HS Metoprolol Succinate (ER) [Toprol Xl] 100 mg PO DAILY Isosorbide Mononitrate ER [Imdur] 60 mg PO DAILY Discharge Medication List amLODIPine [Norvasc] 10 mg PO DAILY 01/29/17 [History] traZODone HCL [Desyrel] 50 mg PO HS 05/11/19 [History] Aspirin 81 mg PO DAILY #90 chewable 05/15/19 [Rx] Nitroglycerin Sl Tabs [Nitrostat] 0.4 mg SUBLINGUAL Q5M PRN #100 tab 05/15/19 [Rx] Alfuzosin HCl [Uroxatral ER] 10 mg PO HS 12/01/20 [History] Isosorbide Mononitrate ER [Imdur] 60 mg PO DAILY 12/01/20 [History] Metoprolol Succinate (ER) [Toprol Xl] 100 mg PO DAILY 12/01/20 [History] Rosuvastatin Calcium [Crestor] 20 mg PO HS 12/01/20 [History] Docusate [Colace] 100 mg PO BID #60 capsule 12/09/20 [Rx] Doxycycline Hyclate 100 mg PO BID #10 tab 12/09/20 [Rx] HYDROcodone/APAP 10-325MG [[place] 10-325] 1 tab PO Q4HR PRN #42 tab 12/09/20 [Rx] Follow up Appointment(s)/Referral(s): Bill Cortés MD [STAFF PHYSICIAN] - 12/19/20 1:35 pm Activity/Diet/Wound Care/Special Instructions: nonweightbearing maintain sling keep wound clean and dry take meds as directed F/u with Dr. Cortés in office Discharge Disposition: HOME SELF-CARE
[2020-12-09 11:03] LABS: Basophils # (A) 0.01 X 10*3/uL (0.00-0.10); Basophils % (A) 0.1 %; Eosinophils # (A) 0.01 X 10*3/uL (0.04-0.35); Eosinophils % (A) 0.1 %; HCT 32.6 % (39.6-50.0); HGB 10.9 g/dL (13.0-17.0); Lymphocytes # (A) 0.94 X 10*3/uL (0.90-5.00); Lymphocytes % (A) 11.4 %; MCH 30.7 pg (27.0-32.0); MCHC 33.4 g/dL (32.0-37.0); MCV 91.8 fL (80.0-97.0); Monocytes # (A) 0.72 X 10*3/uL (0.20-1.00); Monocytes % (A) 8.7 %; Neutrophils # (A) 6.56 X 10*3/uL (1.80-7.70); Neutrophils % (A) 79.5 %; Platelet Count 114 X 10*3/uL (140-440); RBC 3.55 X 10*6/uL (4.40-5.60); WBC 8.26 X 10*3/uL (4.50-10.00)
[2020-12-09] MEDS ORDERED: HYDROcodone/APAP 10-325MG 1 EACH TAB PO ONE (11:30)
--- NOTE | 2020-12-09 15:47 | P.PN ---
Subjective Progress Note Date: 12/09/20 No new complaints today Objective - Vital Signs Vital signs: Vital Signs Temp 98.9 F 12/09/20 08:00 Pulse 57 L 12/09/20 08:00 Resp 20 12/09/20 01:38 BP 137/68 12/09/20 08:00 Pulse Ox 95 12/09/20 08:00 Intake & Output 12/08/20 12/09/20 12/09/20 18:59 06:59 18:59 Intake Total 1487 Output Total 700 1435 Balance 787 -1435 Weight 104.5 kg Intake: IV 1251 Oral 236 Output: Drainage 60 Right Shoulder 60 Urine 400 1375 Estimated Blood Loss 300 Other: Voiding Method Urinal - Exam Gen: awake, alert HEENT: normocephalic, atraumatic, good hearing acuity, moist mucous membranes Resp: good air exchange, breathing comfortably with no accessory muscle use CVS: good distal perfusion x 4, GI: soft, NTTP, ND : no SPT, no CVAT, moran catheter not present MSK: no pitting edema, no clubbing Neuro: non-focal, moving all extremities Psych: cooperative, euthymic mood - Labs CBC & Chem 7: 12/09/20 05:55 Labs: Abnormal Lab Results - Last 24 Hours (Table) 12/09/20 Range/Units 05:55 RBC 3.55 L (4.40-5.60) X 10*6/uL Hgb 10.9 L (13.0-17.0) g/dL Hct 32.6 L (39.6-50.0) % Plt Count 114 L (140-440) X 10*3/uL Eosinophils # 0.01 L (0.04-0.35) X 10*3/uL Assessment and Plan Assessment: CAD HTN HLD -Continue home medications -Patient's home aspirin can be resumed at the earliest convenience, once cleared by surgery Right shoulder arthroplasty -Pain control and DVT prophylaxis per primary team Patient is full code Medicine will continue to follow until discharge, please contact us if any questions/concerns.
== END 2020-12-09 13:42 | disposition home or self-care (01) ==
LOC: LABMAIN 10:27 → 2ORMAIN 13:26 → 4SSUR 13:26 → LABMAIN 12-09 13:42 → 2ORMAIN 12-09 13:42 → UNDODISIN 12-09 13:42
PROVIDERS: ATTEND Orthopaedic Surgery Sports Medicine
DX: M19.011 Primary osteoarthritis, right shoulder (principal); I10 Essential (primary) hypertension; I25.10 Atherosclerotic heart disease of native coronary artery without angina pectoris; I35.1 Nonrheumatic aortic (valve) insufficiency; E78.5 Hyperlipidemia, unspecified; Z20.822 Contact with and (suspected) exposure to COVID-19; Z79.82 Long term (current) use of aspirin; Z79.899 Other long term (current) drug therapy; Z95.5 Presence of coronary angioplasty implant and graft
CPT/HCPCS: 64415; 76942; 85025; 88300; 87635; 73020; 23472; C1776; J2250; J1100; J2710; J0690 ×3; J2405; J2001; J3010; J2795; J2370; J0330; J2704; J1170 ×4

== ENCOUNTER → 2021-03-24 | Outpatient (CLI) | payer MEDICARE, OTHER ==
--- NOTE | 2021-03-24 07:59 | CT ---
EXAMINATION TYPE: CT shoulder RT wo con DATE OF EXAM: 03/24/2021 COMPARISON: CT right shoulder October 14, 2020 HISTORY: evaluate possible stress fracture status post reverse shoulder arthroplasty done 12/08/20 CT DLP: 554.1 mGycm Automated exposure control for dose reduction was used. FINDINGS: Metallic hardware from reverse right shoulder arthroplasty now present causing streak artifact making evaluation slightly suboptimal. Position felt satisfactory. No suspicious linear sclerosis to sugges t acute stress type fracture. No suspicious linear lucency to suggest nondisplaced acute fracture. Leslie btle broad-based bony projection proximal humeral diaphysis posterior lateral aspect axial image 50 i s unchanged from prior study axial image 45 possible small osteochondroma. Muscle bulk in the right u pper extremity is maintained. Acromioclavicular joint shows stable moderate to severe narrowing and m oderate spurring. Visualized ribs are intact. Visualized right lung is clear. IMPRESSION: As above.
== END | disposition home or self-care (01) ==
LOC: RADCTMAIN 07:17
PROVIDERS: ATTEND Orthopaedic Surgery Sports Medicine
DX: M25.511 Pain in right shoulder (principal); S43.421A Sprain of right rotator cuff capsule, initial encounter; M66.211 Spontaneous rupture of extensor tendons, right shoulder; M19.011 Primary osteoarthritis, right shoulder; S46.191D Other injury of muscle, fascia and tendon of long head of biceps, right arm, subsequent encounter; I10 Essential (primary) hypertension; Z47.89 Encounter for other orthopedic aftercare; Z68.33 Body mass index [BMI] 33.0-33.9, adult; Z47.1 Aftercare following joint replacement surgery; Z96.611 Presence of right artificial shoulder joint

== ENCOUNTER 2023-08-02 12:27 | Observation (INO) | payer MEDICARE, OTHER ==
[2023-08-02] MEDS ORDERED: NITROGLYCERIN SL TABS 0.4 MG TAB SUBLINGUAL STA (12:49)
--- NOTE | 2023-08-02 13:07 | ED ---
General Adult HPI - General Chief complaint: Chest Pain Stated complaint: Chest Presure Time Seen by Provider: 08/02/23 12:30 Source: patient, EMS, RN notes reviewed, old records reviewed Mode of arrival: EMS Limitations: no limitations - History of Present Illness Initial comments: Patient is a 72-year-old male who presents mostly Department as a transfer from [facility] for chest pain. Patient presented with multiple days of on again off again chest discomfort which she describes as tightness. Was a 4-5 when he initially presented. Improved to a 1-2 while in their emergency department however unknown if the nitro improved it or not. Patient received aspirin there. Workup unremarkable. Troponin was not elevated. EKG was within normal limits. Due to patient's elevated heart score of 5, was transferred here for cardiac observation and evaluation. 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 Patient currently is resting comfortably. States chest pain is a 1. We will trial an additional dose of nitroglycerin at this time. Patient was in agreement this plan. - Related Data Home Medications Medication Instructions Recorded Confirmed amLODIPine [Norvasc] 10 mg PO DAILY 01/29/17 12/08/20 traZODone HCL [Desyrel] 50 mg PO HS 05/11/19 12/08/20 Alfuzosin HCl [Uroxatral ER] 10 mg PO HS 12/01/20 12/08/20 Isosorbide Mononitrate ER [Imdur] 60 mg PO DAILY 12/01/20 12/08/20 Metoprolol Succinate (ER) [Toprol 100 mg PO DAILY 12/01/20 12/08/20 Xl] Rosuvastatin Calcium [Crestor] 20 mg PO HS 12/01/20 12/08/20 Previous Rx's Medication Instructions Recorded Aspirin 81 mg PO DAILY #90 chewable 05/15/19 Nitroglycerin Sl Tabs [Nitrostat] 0.4 mg SUBLINGUAL Q5M PRN #100 tab 05/15/19 Docusate [Colace] 100 mg PO BID #60 capsule 12/09/20 Doxycycline Hyclate 100 mg PO BID #10 tab 12/09/20 HYDROcodone/APAP 10-325MG [Check 1 tab PO Q4HR PRN #42 tab 12/09/20 10-325] Allergies Allergy/AdvReac Type Severity Reaction Status Date / Time lisinopril AdvReac Cough Verified 12/08/20 07:13 Review of Systems ROS Statement: Those systems with pertinent positive or pertinent negative responses have been documented in the HPI. Review of Systems: CONST: Denies fever EYES: Denies blurry vision ENT: Denies nasal congestion C/V: Endorses chest tightness RESP: Denies shortness of breath GI: Denies abdominal pain : Denies dysuria SKIN: Denies rash. MSK: Denies joint pain. NEURO: Denies headache ROS Other: All systems not noted in ROS Statement are negative. Past Medical History Past Medical History: Hearing Disorder / Deafness, Hyperlipidemia, Hypertension, Osteoarthritis (OA), Prostate Disorder Additional Past Medical History / Comment(s): Past recurrent pancreatitis, possible autoimmune hepatitis-pt states 3 physicians said he did and 3 said he did not have it, slight heart valve leak, occasional back pain, arthritis in multiple joints. History of Any Multi-Drug Resistant Organisms: None Reported Past Surgical History: Cholecystectomy, Hernia Repair, Joint Replacement, Orthopedic Surgery Additional Past Surgical History / Comment(s): R & L Knee replaced; R & L shoulder arthroscopic surgeries, umbilical hernia repair with mesh, incisional hernia repair, EGD, ERCP, colonoscopy, total right shoulder Past Anesthesia/Blood Transfusion Reactions: No Reported Reaction Date of Last Stent Placement:: May 2019 Past Psychological History: No Psychological Hx Reported Smoking Status: Never smoker Past Alcohol Use History: Occasional Past Drug Use History: None Reported - Past Family History Father Family Medical History: Cancer Additional Family Medical History / Comment(s): LUNG CANCER Mother Family Medical History: Cancer Additional Family Medical History / Comment(s): LUNG CANCER Sister(s) Family Medical History: Cancer Additional Family Medical History / Comment(s): BREAST CANCER General Exam - General Exam Comments Initial Comments: General: Appears in no acute distress. HEAD: Normal with no signs of head trauma. EYES: PERRLA, EOMI, conjunctiva normal, no discharge. ENT: Hearing grossly intact, normal oropharynx. RESPIRATORY: Clear breath sounds bilaterally. No wheezes, rales, or rhonchi. C/V: Regular rate and rhythm. S1 and S2 auscultated, no edema, peripheral pulses 2+ and intact throughout ABD: Abd is soft, nontender, nondistended EXT: Normal range of motion, no obvious deformity SKIN: No rashes or lesions observed on exposed skin. NEURO: Alert and oriented 4. Limitations: no limitations Course Vital Signs 08/02/23 12:33 Temperature 97.8 F Pulse Rate 77 Respiratory 17 Rate Blood Pressure 139/73 O2 Sat by Pulse 96 Oximetry Medical Decision Making - Medical Decision Making Was pt. sent in by a medical professional or institution (, WOODY, ROENTGENOLOGIST, urgent care, hospital, or [facility]...) When possible be specific @ -No Did you speak to anyone other than the patient for history (EMS, parent, family, police, friend...)? What history was obtained from this source @ -No Did you review nursing and triage notes (agree or disagree)? Why? @ -I reviewed and agree with nursing and triage notes Were old charts reviewed (outside hosp., previous admission, EMS record, old EKG, old radiological studies, urgent care reports/EKG's, [facility] records)? Report findings @ -Old charts reviewed Differential Diagnosis (chest pain, altered mental status, abdominal pain women, abdominal pain men, vaginal bleeding, weakness, fever, dyspnea, syncope, headache, dizziness, GI bleed, back pain, seizure, CVA, palpatations, mental health, musculoskeletal)? @ -Differential Chest Pain: Stable Angina, Unstable Angina, STEMI, NSTEMI Aortic Dissection, Pneumothorax, Musculoskeletal, Esophageal Spasm GERD, Cholecystitis, Pancreatitis, Zoster, this is not meant to be an all-inclusive list. EKG interpreted by me (3pts min.). @ -As above X-rays interpreted by me (1pt min.). @ -None done. Completed at the outside facility. CT interpreted by me (1pt min.). @ -None done U/S interpreted by me (1pt. min.). @ -None done What testing was considered but not performed or refused? (CT, X-rays, U/S, labs)? Why? @ -None What meds were considered but not given or refused? Why? @ -Considered aspirin however patient already received 324 mg of aspirin. Did you discuss the management of the patient with other professionals (professionals i.e. , WOODY, ROENTGENOLOGIST, lab, RT, psych nurse, hospital social worker, health insurance assessor, teacher, weapons officer, block and case maker)? Give summary @ -I spoke with Dr. Ingram who accepted the admission. Was smoking cessation discussed for >3mins.? @ -No Was critical care preformed (if so, how long)? @ -No Were there social determinants of health that impacted care today? How? (Homelessness, low income, unemployed, alcoholism, drug addiction, transportation, low edu. Level, literacy, decrease access to med. care, residential, rehab)? @ -No Was there de-escalation of care discussed even if they declined (Discuss DNR or withdrawal of care, Hospice)? DNR status @ -No What co-morbidities impacted this encounter? (DM, HTN, Smoking, COPD, CAD, Cancer, CVA, ARF, Chemo, Hep., AIDS, mental health diagnosis, sleep apnea, morbid obesity)? @ -None Was patient admitted / discharged? Hospital course, mention meds given and route, prescriptions, significant lab abnormalities, going to OR and other pertinent info. @ -Based on the patient's presentation and physical exam, presents as a transfer from [facility] for chest pain. Heart score is 5. He will be admitted to cardiac observation for cardiology evaluation. Chest pain is mostly resolved. He will receive one additional nitro this tablet here however he is on nitro paste. His arterial received aspirin. We will repeat labs, obtain a repeat EKG. Patient was in agreement this plan. Vital signs are within acceptable limits. I spoke with the admitting physician, Dr. Ingram of [facility] who accepted the admission. Cardiology consulted.Patient's EKG here showed no obvious acute ischemic process. Patient's laboratory studies showed an undetectable troponin. Patient will be admitted in stable condition. Cardiology is consulted. Undiagnosed new problem with uncertain prognosis? @ -No Drug Therapy requiring intensive monitoring for toxicity (Heparin, Nitro, Insulin, Cardizem)? @ -No Were any procedures done? @ -No Diagnosis/symptom? @ -Chest pain Acute, or Chronic, or Acute on Chronic? @ -Acute Uncomplicated (without systemic symptoms) or Complicated (systemic symptoms)? @ -Uncomplicated Side effects of treatment? @ -No Exacerbation, Progression, or Severe Exacerbation? @ -No Poses a threat to life or bodily function? How? (Chest pain, USA, AR, pneumonia, PE, COPD, DKA, ARF, appy, cholecystitis, CVA, Diverticulitis, Homicidal, Suicidal, threat to staff... and all critical care pts) @ -Potentially, yes - Lab Data Result diagrams: 08/02/23 13:26 08/02/23 13:26 Lab Results 08/02/23 08/02/23 08/02/23 Range/Units 13:26 13:26 13:26 WBC 5.5 (3.8-10.6) k/uL RBC 4.57 (4.30-5.90) m/uL Hgb 14.2 (13.0-17.5) gm/dL Hct 41.3 (39.0-53.0) % MCV 90.5 (80.0-100.0) fL MCH 31.0 (25.0-35.0) pg MCHC 34.3 (31.0-37.0) g/dL RDW 13.2 (11.5-15.5) % Plt Count 122 L (150-450) k/uL MPV 7.7 Neutrophils % 71 % Lymphocytes % 19 % Monocytes % 7 % Eosinophils % 2 % Basophils % 0 % Neutrophils # 3.9 (1.3-7.7) k/uL Lymphocytes # 1.1 (1.0-4.8) k/uL Monocytes # 0.4 (0-1.0) k/uL Eosinophils # 0.1 (0-0.7) k/uL Basophils # 0.0 (0-0.2) k/uL PT 11.1 (10.0-12.5) sec INR 1.0 (<1.2) APTT 23.6 (22.0-30.0) sec Sodium 139 (137-145) mmol/L Potassium 4.2 (3.5-5.1) mmol/L Chloride 109 H (98-107) mmol/L Carbon Dioxide 21 L (22-30) mmol/L Anion Gap 9 mmol/L BUN 17 (9-20) mg/dL Creatinine 0.69 (0.66-1.25) mg/dL Est GFR (CKD-EPI)AfAm >90 (>60 ml/min/1.73 sqM) Est GFR (CKD-EPI)NonAf >90 (>60 ml/min/1.73 sqM) Glucose 102 H (74-99) mg/dL Calcium 8.9 (8.4-10.2) mg/dL Magnesium 1.9 (1.6-2.3) mg/dL Total Bilirubin 2.1 H (0.2-1.3) mg/dL AST 26 (17-59) U/L ALT 18 (4-49) U/L Alkaline Phosphatase 55 (38-126) U/L Troponin I (0.000-0.034) ng/mL Total Protein 6.5 (6.3-8.2) g/dL Albumin 3.7 (3.5-5.0) g/dL 08/02/23 Range/Units 13:26 WBC (3.8-10.6) k/uL RBC (4.30-5.90) m/uL Hgb (13.0-17.5) gm/dL Hct (39.0-53.0) % MCV (80.0-100.0) fL MCH (25.0-35.0) pg MCHC (31.0-37.0) g/dL RDW (11.5-15.5) % Plt Count (150-450) k/uL MPV Neutrophils % % Lymphocytes % % Monocytes % % Eosinophils % % Basophils % % Neutrophils # (1.3-7.7) k/uL Lymphocytes # (1.0-4.8) k/uL Monocytes # (0-1.0) k/uL Eosinophils # (0-0.7) k/uL Basophils # (0-0.2) k/uL PT (10.0-12.5) sec INR (<1.2) APTT (22.0-30.0) sec Sodium (137-145) mmol/L Potassium (3.5-5.1) mmol/L Chloride (98-107) mmol/L Carbon Dioxide (22-30) mmol/L Anion Gap mmol/L BUN (9-20) mg/dL Creatinine (0.66-1.25) mg/dL Est GFR (CKD-EPI)AfAm (>60 ml/min/1.73 sqM) Est GFR (CKD-EPI)NonAf (>60 ml/min/1.73 sqM) Glucose (74-99) mg/dL Calcium (8.4-10.2) mg/dL Magnesium (1.6-2.3) mg/dL Total Bilirubin (0.2-1.3) mg/dL AST (17-59) U/L ALT (4-49) U/L Alkaline Phosphatase (38-126) U/L Troponin I <0.012 (0.000-0.034) ng/mL Total Protein (6.3-8.2) g/dL Albumin (3.5-5.0) g/dL - EKG Data -: EKG Interpreted by Me EKG Comments: 12-lead Electrocardiogram Interpretation Note EKG was reviewed and interpreted by myself. 12-lead ECG performed at 1318 oh is interpreted by me as revealing 87 at a rate of 87 beats per minute. [place] is normal. ME interval is 160 ms, respirations 110 ms, QTc is 408 ms.. There were no ST or T wave abnormalities to suggest myocardial ischemia or injury. R wave progression across the precordium was satisfactory. By my interpretation this EKG is non-diagnostic for acute ischemia. Disposition Clinical Impression: Chest pain Disposition: ADMITTED IP TO THIS HOSP Condition: Stable Is patient prescribed a controlled substance at d/c from ED?: No Referrals: Juan Antonio Taylor MD [Primary Care Provider] - 1-2 days Time of Disposition: 14:00
[2023-08-02 13:41] LABS: Basophils % (A) 0 %; Eosinophils # (A) 0.1 k/uL (0-0.7); Eosinophils % (A) 2 %; HCT 41.3 % (39.0-53.0); HGB 14.2 gm/dL (13.0-17.5); Lymphocytes # (A) 1.1 k/uL (1.0-4.8); Lymphocytes % (A) 19 %; MCHC 34.3 g/dL (31.0-37.0); MCV 90.5 fL (80.0-100.0); Mean Platelet Volume 7.7; Monocytes # (A) 0.4 k/uL (0-1.0); Monocytes % (A) 7 %; Neutrophils # (A) 3.9 k/uL (1.3-7.7); Neutrophils % (A) 71 %; Platelet Count 122 k/uL (150-450); RBC 4.57 m/uL (4.30-5.90); RDW 13.2 % (11.5-15.5); WBC 5.5 k/uL (3.8-10.6)
[2023-08-02 13:55] LABS: Partial Thromboplastin Time 23.6 sec (22.0-30.0); Prothrombin Time 11.1 sec (10.0-12.5)
[2023-08-02 14:00] LABS: ALT 18 U/L (4-49); AST 26 U/L (17-59); African American GFR (CKD) >90 (>60 ml/min/1.73 sqM); Albumin 3.7 g/dL (3.5-5.0); Alkaline Phosphatase 55 U/L (38-126); Anion Gap 9 mmol/L; Blood Urea Nitrogen 17 mg/dL (9-20); Calcium 8.9 mg/dL (8.4-10.2); Carbon Dioxide 21 mmol/L (22-30); Chloride 109 mmol/L (98-107); Glucose 102 mg/dL (74-99); Magnesium 1.9 mg/dL (1.6-2.3); Non-African American GFR(CKD) >90 (>60 ml/min/1.73 sqM); Potassium 4.2 mmol/L (3.5-5.1); Sodium 139 mmol/L (137-145); Total Bilirubin 2.1 mg/dL (0.2-1.3); Total Protein 6.5 g/dL (6.3-8.2)
[2023-08-02] MEDS ORDERED: NALOXONE 0.4 MG/ML 1 ML VIAL IV PRN (14:21)
[2023-08-02] MEDS ORDERED: ACETAMINOPHEN TAB 325 MG TAB PO STA (14:50)
--- NOTE | 2023-08-02 15:41 | P.HPIM ---
History of Present Illness H&P Date: 08/02/23 History of Presenting Illness: Patient is a very pleasant 72-year-old male with a past medical history of CAD status post stenting, hypertension, and hyperlipidemia. He presented to [facility] with a chief complaint of chest tightness. Patient reports he was lying in bed and was awoken with the feeling that his blood pressure was very high because he could feel his heart pounding in his head. He reports that he laid there for a little while but then began to feel tightness throughout his chest. Patient reports that he got up and took his blood pr essure is very elevated in the 190s. Patient states he grew concerned because he has had multiple medication changes over the past few months. Patient reports going through a very difficult time as his became ill and he was caring for her prior to her passing in January. Patient reports he had and continues to have a very difficult time dealing with her loss. Patient tearfully reports life just is not the same. 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 Patient states that he follows with Dr. Cary and was scheduled to have a stress test today but instead was instructed to go to the emergency department secondary to his chest tightness. Patient initially seen and evaluated at [facility] where he underwent full evaluation which initially showed a negative cardiac workup. However secondary to elevated heart score of 5, patient was transferred to our facility for admission to observation and further cardiac workup. Upon arrival to our facility patient underwent full evaluation. Vital signs upon arrival show blood pressure 139/73, heart rate 77, respiratory rate 17, temp 97.8F, SpO2 of 96% on room air. EKG was completed showing normal sinus rhythm at 87 bpm with no noted T wave or ST abnormality showing no signs of acute ischemia upon personal review and interpretation. Labs completed and reviewed. CBC showing mild thrombocytopenia with platelet count of 122 otherwise normal findings. Coagulation profile normal findings. BMP revealing hyperchloremia with chloride of 109, bicarb 21, and anion gap of 9. Renal function unremarkable. Magnesium normal findings at 1.9. Liver profile showing slight elevation of total bili of 2.1 otherwise normal findings. Troponin negative at less than 0.012. Patient was admitted under our services to cardiac observation with consultation to cardiology. Review of systems: Pertinent positives and negatives as discussed in HPI, a complete review of systems was performed and all other systems are negative. Physical exam: Vital signs reviewed and stable. General: Nontoxic, no distress and appears stated age. Derm: Skin warm and dry, normal coloration for ethnicity. Head: Atraumatic, normocephalic and symmetric. Eyes: EOMs intact, no lid lag, and anicteric sclera Mouth: no lip lesions, mucus membranes moist Cardiovascular: regular rate and rhythm with normal S1S2, no murmur, positive posterior tibial pulses bilaterally, and cap refill < 2 seconds. Lungs: Respirations even, regular, and unlabored on room air. Lungs CTA bilaterally, no rhonchi, no rales, no wheezing, and no accessory muscle usage. Abdominal: soft, nontender to palpation, no guarding, no appreciable organomegaly Ext: ROM intact. No gross muscle atrophy, no edema, no contractures Neuro: Speech clear, face symmetrical and CN II-XII grossly intact with no noted focal neuro deficits Psych: Alert and oriented to person, place, time, and situation. Appropriate and pleasant affect. Assessment and Plan of Care: Chest pain/tightness, rule out acute coronary event History of CAD status post stenting Hypertension Hyperlipidemia -Cardiology consult, appreciate further recommendations -Telemetry monitoring -Trend troponins -Cardiac diet, NPO at midnight -Aspirin, atorvastatin, and metoprolol -Patient to continue aspirin 81 mg daily, amlodipine 10 mg daily, atorvastatin 40 mg nightly, and metoprolol succinate 25 mg daily. -Order placed for Echocardiogram Date and imaging reviewed: Please see full detailed report in HPI The patient is admitted with an anticipated less than 2 midnight stay for evaluation of chest pain/tightness CODE STATUS: Full code DVT prophylaxis: Heparin Anticipated discharge date: 24-[address]: Home Patient was seen independently by Nurse Practitioner. This document was prepared using [employer] dictation software. Please allow for errors in central station operator while rare they do occur. Juan Miguel Dunaway NP rendered care for this patient independently, reviewed the findings and plan as documented in the note above. I did not physically speak with or examine the patient on this date. Past Medical History Past Medical History: Hearing Disorder / Deafness, Hyperlipidemia, Hypertension, Osteoarthritis (OA), Prostate Disorder Additional Past Medical History / Comment(s): Past recurrent pancreatitis, possible autoimmune hepatitis-pt states 3 physicians said he did and 3 said he did not have it, slight heart valve leak, occasional back pain, arthritis in multiple joints. History of Any Multi-Drug Resistant Organisms: None Reported Past Surgical History: Cholecystectomy, Hernia Repair, Joint Replacement, Orthopedic Surgery Additional Past Surgical History / Comment(s): R & L Knee replaced; R & L shoulder arthroscopic surgeries, umbilical hernia repair with mesh, incisional hernia repair, EGD, ERCP, colonoscopy, total right shoulder Past Anesthesia/Blood Transfusion Reactions: No Reported Reaction Date of Last Stent Placement:: May 2019 Past Psychological History: No Psychological Hx Reported Smoking Status: Never smoker Past Alcohol Use History: Occasional Past Drug Use History: None Reported - Past Family History Father Family Medical History: Cancer Additional Family Medical History / Comment(s): LUNG CANCER Mother Family Medical History: Cancer Additional Family Medical History / Comment(s): LUNG CANCER Sister(s) Family Medical History: Cancer Additional Family Medical History / Comment(s): BREAST CANCER Medications and Allergies Home Medications Medication Instructions Recorded Confirmed Type amLODIPine [Norvasc] 10 mg PO DAILY 01/29/17 08/02/23 History traZODone HCL [Desyrel] 50 mg PO HS 05/11/19 08/02/23 History Rosuvastatin Calcium [Crestor] 20 mg PO HS 12/01/20 08/02/23 History Aspirin EC [Ecotrin Low Dose] 81 mg PO DAILY 08/02/23 08/02/23 History Metoprolol Succinate (ER) [Toprol 25 mg PO DAILY 08/02/23 08/02/23 History Xl] Oxybutynin Chloride [oxyBUTYnin 10 mg PO HS 08/02/23 08/02/23 History chloride ER] Tamsulosin [Flomax] 0.4 mg PO HS 08/02/23 08/02/23 History Allergies Allergy/AdvReac Type Severity Reaction Status Date / Time lisinopril AdvReac Cough Verified 08/02/23 14:33 Physical Exam Vitals: Vital Signs Temp Pulse Resp BP Pulse Ox 08/02/23 12:33 97.8 F 77 17 139/73 96 Intake and Output 08/01/23 08/02/23 08/02/23 22:59 06:59 14:59 Other: Weight 95.254 kg Results CBC & Chem 7: 08/02/23 13:26 08/02/23 13:26 Labs: Abnormal Lab Results - Last 24 Hours (Table) 08/02/23 08/02/23 Range/Units 13:26 13:26 Plt Count 122 L (150-450) k/uL Chloride 109 H (98-107) mmol/L Carbon Dioxide 21 L (22-30) mmol/L Glucose 102 H (74-99) mg/dL Total Bilirubin 2.1 H (0.2-1.3) mg/dL
[2023-08-02] MEDS: HEPARIN SODIUM,PORCINE 5,000 UNIT/ML 1 ML VIAL SQ SCH ×2 (16:15→22:51)
[2023-08-02] MEDS: NITROGLYCERIN OINT 1 INCH/GM PACKET TOPICAL SCH ×2 (16:15→22:51)
--- NOTE | 2023-08-02 17:43 | CA ---
Transthoracic Echo Report Name: Bill Navarrete Age: 72 Gender: M : 1950 Exam Date: 08/02/2023 16:47 Exam Location: [facility] Ht (in): 69 Wt (lb): 210 Ordering Physician: Juan Miguel Dunaway Attending/Referring Phys: International Operations Manager Giancarlo Castle Procedure CPT: Indications: Evaluate structure and function of heart Cardiac Hx: Technical Quality: Fair Contrast 1: Total Dose (mL): Contrast 2: Total Dose (mL): MEASUREMENTS (Male / Female) Normal Values 2D ECHO LV Diastolic Diameter PLAX 4.7 cm 4.2 - 5.9 / 3.9 - 5.3 cm LV Systolic Diameter PLAX 3.2 cm IVS Diastolic Thickness 1.1 cm 0.6 - 1.0 / 0.6 - 0.9 cm LVPW Diastolic Thickness 1.2 cm 0.6 - 1.0 / 0.6 - 0.9 cm LV Relative Wall Thickness 0.5 RV Internal Dim ED PLAX 4.0 cm LVOT Diameter 2.1 cm Aortic Root Diameter 3.4 cm LA Systolic Diameter LX 3.6 cm 3.0 - 4.0 / 2.7 - 3.8 cm LV Diastolic Volume MOD BP 53.5 cm??? 67 - 155 / 56 - 104 cm??? LV Systolic Volume MOD BP 17.0 cm??? - 58 / 19 - 49 cm??? LV Ejection Fraction MOD BP 68.3 % >= 55 % LV Cardiac Index MOD BP 1154.5 cm???/min???m??? LV Diastolic Volume MOD 4C 60.7 cm??? LV Systolic Volume MOD 4C 20.6 cm??? LV Ejection Fraction MOD 4C 66.1 % LV Cardiac Index MOD 4C 1270.6 cm???/min???m??? LV Diastolic Length 4C 7.5 cm LV Systolic Length 4C 6.5 cm LV Diastolic Volume MOD 2C 44.5 cm??? LV Systolic Volume MOD 2C 14.1 cm??? LV Ejection Fraction MOD 2C 68.4 % LV Cardiac Index MOD 2C 964.1 cm???/min???m??? LV Diastolic Length 2C 7.0 cm LV Systolic Length 2C 6.5 cm LA Volume 45.2 cm??? 18 - 58 / 22 - 52 cm??? LA Volume Index 20.7 cm???/m??? 16 - 28 cm???/m??? DOPPLER AV Peak Velocity 182.7 cm/s AV Peak Gradient 13.4 mmHg AV Mean Velocity 149.7 cm/s AV Mean Gradient 10.1 mmHg AV Velocity Time Integral 43.0 cm AI Peak Velocity 143.4 cm/s AI Peak Gradient 8.2 mmHg AI Pressure Half Time 456.4 ms LVOT Peak Velocity 119.7 cm/s LVOT Peak Gradient 5.7 mmHg LVOT Velocity Time Integral 27.8 cm LVOT Stroke Volume 99.1 cm??? LVOT Stroke Volume Index 47.0 ml/m??? LVOT Cardiac Index 3136.2 cm???/min???m??? AV Area Cont Eq vti 2.3 cm??? AV Area Cont Eq pk 2.3 cm??? MV Peak Velocity 104.3 cm/s MV Peak Gradient 4.4 mmHg MV Mean Velocity 48.2 cm/s MV Mean Gradient 1.1 mmHg MV Velocity Time Integral 33.2 cm Mitral E Point Velocity 71.0 cm/s Mitral A Point Velocity 89.5 cm/s Mitral E to A Ratio 0.8 MV Deceleration Time 263.8 ms MV E' Velocity 3.2 cm/s Mitral E to MV E' Ratio 22.2 TR Peak Velocity 177.7 cm/s TR Peak Gradient 12.6 mmHg PV Peak Velocity 92.2 cm/s PV Peak Gradient 3.4 mmHg FINDINGS Left Ventricle Left ventricular cavity size normal. Normal left ventricular wall motion. . Left ventricular ejection fraction is estimated at 55-60 %.Mildly increased left ventricular wall thickness. Right Ventricle Normal right ventricular size. Right Atrium Normal right atrial size. Left Atrium Normal left atrial size. Mitral Valve Structurally normal mitral valve. Mild MR. Aortic Valve Aortic valve sclerosis. Mild aortic regurgitation. Tricuspid Valve Structurally normal tricuspid valve. Mild TR. Pulmonic Valve Pulmonic valve not well visualized. Trace pulmonic regurgitation. Pericardium Normal pericardium. Aorta Normal size aortic root. CONCLUSIONS 1. Normal left ventricular size and systolic function 2. Mild mitral, aortic and tricuspid regurgitation Previewed by: Dr. Keira Radford MD (Electronically Signed) Final Date: 02 August 2023 17:42
[2023-08-02] MEDS ORDERED: ATORVASTATIN 40 MG TAB PO SCH (21:00)
[2023-08-02] MEDS ORDERED: traZODone HCL 50 MG TAB PO SCH (21:00)
[2023-08-02] MEDS ORDERED: OXYBUTYNIN 10 MG TAB.ER.24 PO SCH (21:00)
[2023-08-02] MEDS ORDERED: TAMSULOSIN 0.4 MG CAP.ER.24H PO SCH (21:00)
[2023-08-03 07:59] VITALS: BP 137/73; PULSE 51; RESP 15; TEMP 97.6
[2023-08-03 08:16] LABS: Basophils % (A) 1 %; Eosinophils # (A) 0.1 k/uL (0-0.7); Eosinophils % (A) 3 %; HCT 39.7 % (39.0-53.0); HGB 13.7 gm/dL (13.0-17.5); Lymphocytes % (A) 23 %; MCH 31.8 pg (25.0-35.0); MCHC 34.4 g/dL (31.0-37.0); MCV 92.3 fL (80.0-100.0); Mean Platelet Volume 7.7; Monocytes # (A) 0.3 k/uL (0-1.0); Monocytes % (A) 7 %; Neutrophils # (A) 2.8 k/uL (1.3-7.7); Neutrophils % (A) 64 %; Platelet Count 106 k/uL (150-450); RBC 4.31 m/uL (4.30-5.90); RDW 13.2 % (11.5-15.5); WBC 4.3 k/uL (3.8-10.6)
[2023-08-03 08:28] LABS: African American GFR (CKD) >90 (>60 ml/min/1.73 sqM); Anion Gap 8 mmol/L; Blood Urea Nitrogen 16 mg/dL (9-20); Calcium 8.8 mg/dL (8.4-10.2); Carbon Dioxide 24 mmol/L (22-30); Chloride 106 mmol/L (98-107); Glucose 91 mg/dL (74-99); Non-African American GFR(CKD) 90 (>60 ml/min/1.73 sqM); Potassium 4.4 mmol/L (3.5-5.1); Sodium 138 mmol/L (137-145)
[2023-08-03] MEDS ORDERED: METOPROLOL SUCCINATE (ER) 25 MG TAB.ER.24H PO SCH (09:00)
[2023-08-03] MEDS ORDERED: VALSARTAN 160 MG TAB PO SCH (09:00)
[2023-08-03] MEDS ORDERED: carvediloL 6.25 MG TAB PO SCH (09:00)
[2023-08-03] MEDS ORDERED: ASPIRIN 81 MG PO SCH (09:00)
[2023-08-03] MEDS ORDERED: amLODIPine 10 MG TAB PO SCH (09:00)
[2023-08-03] MEDS: NITROGLYCERIN OINT 1 INCH/GM PACKET TOPICAL SCH (09:19)
[2023-08-03] MEDS: METOPROLOL SUCCINATE (ER) 25 MG TAB.ER.24H PO SCH ×2 (09:33→10:30)
[2023-08-03] MEDS: HEPARIN SODIUM,PORCINE 5,000 UNIT/ML 1 ML VIAL SQ SCH (09:33)
--- NOTE | 2023-08-03 12:53 | P.DS ---
Providers Date of admission: 08/02/23 14:21 Expected date of discharge: 08/03/23 Attending physician: Jaycob Ingram MD Consults: 08/02/23 14:21 Consult Physician Routine Consulting Provider: [facility] Consult Reason/Comments: chest pain Do you want consulting provider notified?: Yes Primary care physician: Juan Antonio Taylor MD Hospital Course: 72-year-old male with a past medical history of CAD status post stenting, hypertension, and hyperlipidemia. He presented to [facility] with a chief complaint of chest tightness. Patient reports he was lying in bed and was awoken with the feeling that his blood pressure was very high because he could feel his heart pounding in his head. He reports that he laid there for a little while but then began to feel tightness throughout his chest. Patient reports that he got up and took his blood pressure is very elevated in the 190s. Patient states he grew concerned because he has had multi ple medication changes over the past few months. Patient reports going through a very difficult time as his became ill and he was caring for her prior to her passing in January. Patient reports he had and continues to have a very difficult time dealing with her loss. Patient tearfully reports life just is not the same. Patient states since all of this started he has lost approximately 30 pounds and therefore his manager nuclear has changed HIS antihypertensive medication regimen. Patient states that he follows with Dr. Cary and was scheduled to have a stress test today but instead was instructed to go to the emergency department secondary to his chest tightness. Patient initially seen and evaluated at [facility] where he underwent full evaluation which initially showed a negative cardiac workup. However secondary to elevated heart score of 5, patient was transferred to our facility for admission to observation and further cardiac workup. Upon arrival to our facility patient underwent full evaluation. Vital signs upon arrival show blood pressure 139/73, heart rate 77, respiratory rate 17, temp 97.8F, SpO2 of 96% on room air. EKG was completed showing normal sinus rhythm at 87 bpm with no noted T wave or ST abnormality showing no signs of acute ischemia upon personal review and interpretation. Labs completed and reviewed. CBC showing mild thrombocytopenia with platelet count of 122 otherwise normal findings. Coagulation profile normal findings. BMP revealing hyperchloremia with chloride of 109, bicarb 21, and anion gap of 9. Renal function unremarkable. Magnesium normal findings at 1.9. Liver profile showing slight elevation of total bili of 2.1 otherwise normal findings. Troponin negative at less than 0.012. Patient was admitted under our services to cardiac observation with consultation to cardiology. Troponins trended negative x 3. ACS ruled out. Echo done showed normal LV size and function, mild MR/AR/TR. Cardiology consulted, recommended ambulating the patient and discharge home if asymptomatic, Valsartan added to medication regimen. 08/03 Patient was seen and examined. He reports no chest pain. Ambulating comfortably. Plans for discharge home if no symptoms later on today. Pertinent studies include Echo. General: non toxic, no distress, appears at stated age Derm: warm, dry Head: atraumatic, normocephalic, symmetric Eyes: EOMI, no lid lag, anicteric sclera Cardiovascular: S1S2 reg, no murmur Lungs: CTA bilaterally, no rhonchi, no rales , no accessory muscle use Ext: no gross muscle atrophy, no edema, no contractures Neuro: no focal neuro deficits Psych: Alert, oriented, appropriate affect Discharge Diagnosis: Chest pain/tightness, rule out acute coronary event History of CAD status post stenting Hypertension Hyperlipidemia This complex discharge took 35 minutes to complete. Patient Condition at Discharge: Stable Plan - Discharge Summary Discharge Rx Participant: No New Discharge Prescriptions: New Valsartan [Diovan] 160 mg PO DAILY #30 tab Nitroglycerin Sl Tabs [Nitrostat] 0.4 mg SUBLINGUAL Q5M PRN #25 tab PRN Reason: Chest Pain Continue amLODIPine [Norvasc] 10 mg PO DAILY traZODone HCL [Desyrel] 50 mg PO HS Rosuvastatin Calcium [Crestor] 20 mg PO HS Tamsulosin [Flomax] 0.4 mg PO HS Metoprolol Succinate (ER) [Toprol XL] 25 mg PO DAILY Oxybutynin Chloride [oxyBUTYnin chloride ER] 10 mg PO HS Aspirin EC [Ecotrin Low Dose] 81 mg PO DAILY Discharge Medication List amLODIPine [Norvasc] 10 mg PO DAILY 01/29/17 [History] traZODone HCL [Desyrel] 50 mg PO HS 05/11/19 [History] Rosuvastatin Calcium [Crestor] 20 mg PO HS 12/01/20 [History] Aspirin EC [Ecotrin Low Dose] 81 mg PO DAILY 08/02/23 [History] Metoprolol Succinate (ER) [Toprol XL] 25 mg PO DAILY 08/02/23 [History] Oxybutynin Chloride [oxyBUTYnin chloride ER] 10 mg PO HS 08/02/23 [History] Tamsulosin [Flomax] 0.4 mg PO HS 08/02/23 [History] Nitroglycerin Sl Tabs [Nitrostat] 0.4 mg SUBLINGUAL Q5M PRN #25 tab 08/03/23 [Rx] Valsartan [Diovan] 160 mg PO DAILY #30 tab 08/03/23 [Rx] Follow up Appointment(s)/Referral(s): Ky Cary MD [STAFF PHYSICIAN] - 1 Week Juan Antonio Tyalor MD [Primary Care Provider] - 1-2 days Discharge Disposition: HOME SELF-CARE
--- NOTE | 2023-08-03 16:49 | P.CRDCN ---
History of Present Illness Consult date: 08/03/23 Consult reason: chest pain History of present illness: This is Juan Miguel Vidal NP, I'm dictating on behalf of Dr. Jones's H&P and A&P The patient was interviewed and examined. HPI: Patient is a pleasant 72-year-old male who presented to the hospital with chest pain. Patient reports that he had chest tightness for the last couple of days. He reports stent placement approximately 5 years ago. Patient states that he was supposed to have a stress test yesterday, but due to his chest tightness, he did not make it to his cardiology appointment. [facility], and was transferred here for further evaluation and treatment. Patient has a past medical history that includes CAD, stent placement, hypertension, and hyperlipidemia. Patient reports that his chest tightness did not seem to correlate with getting up and moving around or sitting. He states that he was lying in his bed when the feeling came on. He states his blood pressure was extremely elevated at home, which concerned him an d so he presented to his local ER for evaluation. Patient reports that he has lost approximately 30 pounds over the last few months, and has had to have changes to his medications as he was not feeling well on them. In the emergency department the patient had an EKG demonstrated normal sinus rhythm with no ST or T wave abnormalities noted. Lab work was noncontributory. Troponin was negative. This morning while lying in the bed the patient reports that he is not having any further chest tightness at this time. Telemetry demonstrates normal sinus rhythm. He is denying chest pain, shortness of breath, heart palpitations, dizziness, and syncope at this time. ROS: [No fever, chills, or rigors] [no cough, phlegm, or expectoration] [no nausea, vomiting, or diarrhea] [no hematuria, dysuria] [no musculoskelatal complaints] [no strokes or seizures] [no skin lesions] EXAMINATION: GENERAL: Well-appearing, well-nourished and in no acute distress. NECK: Supple without JVD or thyromegaly. LUNGS: Breath sounds clear to auscultation bilaterally. Respiration equal and unlabored. No wheezes, rales or rhonchi. HEART: Regular rate and rhythm without murmurs, rubs or gallops. S1 and S2 hear d. EXTREMITIES: Normal range of motion, no edema. No clubbing or cyanosis. Peripheral pulses intact and strong. REVIEW OF LABS, ECG & MEDICAL DATA: LABS: White count 4.3, hemoglobin 13.7, platelets 106, sodium 138, potassium 4.4, BUN 16, creatinine 0.82, magnesium 1.9, troponin less than 0.012 EKG: Normal sinus rhythm IMAGING: Echocardiogram dated 08/02/2023 demonstrates normal left ventricular size and systolic function, mild mitral, aortic, and tricuspid regurgitation. VITALS: Temp 97.6, pulse 51, respirations 15, blood pressure 137/73, O2 saturation 98% on room air IMPRESSION: 1. Atypical chest pain 2. Hypertension 3. CAD with previous stenting PLAN: Increase atorvastatin 80 mg daily. Home rosuvastatin should be doubled as well. Start valsartan 160 mg daily. Patient walk the hallways. If no symptoms of chest discomfort arise, patient may be discharged home. Thank you for the consult and allowing us to participate in the care of this patient. Past Medical History Past Medical History: Hearing Disorder / Deafness, Hyperlipidemia, Hypertension, Osteoarthritis (OA), Prostate Disorder Additional Past Medical History / Comment(s): Past recurrent pancreatitis, possible autoimmune hepatitis-pt states 3 physicians said he did and 3 said he did not have it, slight heart valve leak, occasional back pain, arthritis in multiple joints. History of Any Multi-Drug Resistant Organisms: None Reported Past Surgical History: Cholecystectomy, Hernia Repair, Joint Replacement, Orthopedic Surgery Additional Past Surgical History / Comment(s): R & L Knee replaced; R & L shoulder arthroscopic surgeries, umbilical hernia repair with mesh, incisional hernia repair, EGD, ERCP, colonoscopy, total right shoulder Past Anesthesia/Blood Transfusion Reactions: No Reported Reaction Date of Last Stent Placement:: May 2019 Past Psychological History: No Psychological Hx Reported Additional Psychological History / Comment(s): Pt resides with his spouse. They have one dog. He is independent. Smoking Status: Never smoker Past Alcohol Use History: Occasional Past Drug Use History: None Reported - Past Family History Father Family Medical History: Cancer Additional Family Medical History / Comment(s): LUNG CANCER Mother Family Medical History: Cancer Additional Family Medical History / Comment(s): LUNG CANCER Sister(s) Family Medical History: Cancer Additional Family Medical History / Comment(s): BREAST CANCER Medications and Allergies Home Medications Medication Instructions Recorded Confirmed Type amLODIPine [Norvasc] 10 mg PO DAILY 01/29/17 08/02/23 History traZODone HCL [Desyrel] 50 mg PO HS 05/11/19 08/02/23 History Rosuvastatin Calcium [Crestor] 20 mg PO HS 12/01/20 08/02/23 History Aspirin EC [Ecotrin Low Dose] 81 mg PO DAILY 08/02/23 08/02/23 History Metoprolol Succinate (ER) [Toprol 25 mg PO DAILY 08/02/23 08/02/23 History XL] Oxybutynin Chloride [oxyBUTYnin 10 mg PO HS 08/02/23 08/02/23 History chloride ER] Tamsulosin [Flomax] 0.4 mg PO HS 08/02/23 08/02/23 History Nitroglycerin Sl Tabs [Nitrostat] 0.4 mg SUBLINGUAL Q5M PRN #25 tab 08/03/23 Rx Valsartan [Diovan] 160 mg PO DAILY #30 tab 08/03/23 Rx Allergies Allergy/AdvReac Type Severity Reaction Status Date / Time lisinopril AdvReac Cough Verified 08/02/23 14:33 Physical Exam Vitals: Vital Signs Temp Pulse Resp BP BP BP Pulse Ox 08/03/23 09:19 96 08/03/23 07:15 97.6 F 51 L 15 137/73 98 08/03/23 01:18 97.5 F L 60 16 149/81 97 08/02/23 19:13 98.2 F 66 16 146/69 98 08/02/23 17:51 98.0 F 63 19 159/76 98 Intake and Output 08/03/23 08/03/23 08/03/23 06:59 14:59 22:59 Intake Total 118 Balance 118 Intake: Oral 118 Other: # Voids 1 Results 08/03/23 06:38 08/03/23 06:38 Cardiac Enzymes 08/02/23 08/02/23 Range/Units 16:18 20:00 Troponin I <0.012 <0.012 (0.000-0.034) ng/mL CBC 08/03/23 Range/Units 06:38 WBC 4.3 (3.8-10.6) k/uL RBC 4.31 (4.30-5.90) m/uL Hgb 13.7 (13.0-17.5) gm/dL Hct 39.7 (39.0-53.0) % Plt Count 106 L (150-450) k/uL Comprehensive Metabolic Panel 08/03/23 Range/Units 06:38 Sodium 138 (137-145) mmol/L Potassium 4.4 (3.5-5.1) mmol/L Chloride 106 (98-107) mmol/L Carbon Dioxide 24 (22-30) mmol/L BUN 16 (9-20) mg/dL Creatinine 0.82 (0.66-1.25) mg/dL Glucose 91 (74-99) mg/dL Calcium 8.8 (8.4-10.2) mg/dL Intake and Output 08/03/23 08/03/23 08/03/23 06:59 14:59 22:59 Intake Total 118 Balance 118 Intake: Oral 118 Other: # Voids 1 08/03/23 06:38 08/03/23 06:38
[2023-08-03] MEDS ORDERED: ATORVASTATIN 80 MG TAB PO SCH (21:00)
== END 2023-08-03 14:12 | disposition home or self-care (01) ==
LOC: EC 12:27 → 6NMEDSUR 14:21
PROVIDERS: ADMIT Student in an Organized Health Care Education/Training Program; ATTEND Student in an Organized Health Care Education/Training Program
DX: R07.89 Other chest pain (principal); I25.10 Atherosclerotic heart disease of native coronary artery without angina pectoris; I10 Essential (primary) hypertension; E78.5 Hyperlipidemia, unspecified; Z95.5 Presence of coronary angioplasty implant and graft; D69.6 Thrombocytopenia, unspecified; E87.8 Other disorders of electrolyte and fluid balance, not elsewhere classified; H91.90 Unspecified hearing loss, unspecified ear; M19.90 Unspecified osteoarthritis, unspecified site; Z79.899 Other long term (current) drug therapy; Z79.82 Long term (current) use of aspirin; Z88.8 Allergy status to other drugs, medicaments and biological substances; Z90.49 Acquired absence of other specified parts of digestive tract; Z96.653 Presence of artificial knee joint, bilateral; Z80.1 Family history of malignant neoplasm of trachea, bronchus and lung; Z80.3 Family history of malignant neoplasm of breast
CPT/HCPCS: 96372 ×3; 99285; 36415; 94760; 93005; 93306; 80053; 80048; 83735; 84484; 85025 ×2; 85610; 85730; G0378 ×2; J1644 ×2